=== PATIENT | female | born 1970 | race Caucasian/White ===

== ENCOUNTER 2019-05-05 14:50 | Emergency (ER) | payer SELFPAY ==
[~2019-05-05] VITALS: Ht 167.6 cm; Wt 78.6 kg
[2019-05-05] MEDS ORDERED: cefTRIAXone FOR IV USE 1,000 MG in WATER (STERILE) FOR INJECTION 10 ML IV ONE (15:15)
--- NOTE | 2019-05-05 15:32 | ED Integumentary General ---
General Chief Complaint: Skin/Wound Problems Stated Complaint: LT LEG PAIN/SWELLING Source: patient, caregiver Exam Limitations: no limitations History of Present Illness Date Seen by Provider: May 05, 2019 Time Seen by Provider: 15:06 Initial Comments The patient presents to ER by private conveyance with chief complaint she's having some redness pain and swelling in her right ankle consistent with what she says her father gets his cellulitis sometimes. She's never had cellulitis or DVTs. She's worried about a clot though because she's been fighting metastatic breast cancer since 2006. She is on chemotherapy in her white count and platelets were low. She recently got out of hospital and completed Levaquin for fever and possible pneumonia 2 days ago. She's not having any fevers or chills today. She has not taken anything extra for the pain and does not want anything for it right now. She says she sets up a picture of it to her oncologist at [facility] and he told her that he did not think it was a blood clot but she should come to the ER she was concerned about it. She does use oxygen 3-5 L/m at baseline and is not anymore short of breath than usual. She has no history of asthma COPD and quit smoking over 3 years ago. Allergies and Home Medications Allergies Coded Allergies: Iodine (Verified Allergy, Unknown, 06/07/11) Povidone-Iodine (Verified Allergy, Unknown, 06/07/11) Soap (Verified Allergy, Unknown, 06/07/11) Home Medications Cephalexin 500 Mg Tablet, 500 MG PO QID Prescribed by: LANDON NELSON on 05/05/19 1537 Patient Home Medication List Home Medication List Reviewed: Yes Review of Systems Review of Systems Constitutional: No chills, No diaphoresis; fever (2 days ago); No malaise EENTM: No ear discharge, No ear pain Respiratory: No cough, No phlegm Cardiovascular: No chest pain, No edema Gastrointestinal: No abdominal pain, No nausea Genitourinary: No discharge, No dysuria Past Mqxjysn-Ekkryy-Zhzboe Hx Patient Social History Alcohol Use: Denies Use Recreational Drug Use: No Smoking Status: Former Smoker Type Used: Cigarettes Physical Exam Vital Signs Vital Signs - First Documented 05/05/19 16:27 Temp 96.3 Pulse 102 Resp 20 B/P (MAP) 116/91 (99) Pulse Ox 98 O2 Delivery Nasal Cannula O2 Flow Rate 5.00 Capillary Refill : General Appearance: WD/WN, no apparent distress HEENT: PERRL/EOMI, normal ENT inspection Cardiovascular: normal peripheral pulses, regular rate, rhythm Respiratory: lungs clear, normal breath sounds, no respiratory distress, no accessory muscle use Neurologic/Psychiatric: alert, normal mood/affect, oriented x 3 Skin: rash (red, warm, tense, mild swelling of the right lower ankle and a round irregular shape without induration or area of fluctuance palpable. No pointing. Anterior to the lateral malleolus. Approximately 5 cm diameter.), other (erythema is not circumferential) Progress/Results/Core Measures Results/Orders Lab Results Laboratory Tests Test 05/05/19 15:30 Range/Units White Blood Count 5.6 4.3-11.0 10^3/uL Red Blood Count 2.75 L 4.35-5.85 10^6/uL Hemoglobin 8.5 L 11.5-16.0 G/DL Hematocrit 27 L 35-52 % Mean Corpuscular Volume 98 80-99 FL Mean Corpuscular Hemoglobin 31 25-34 PG Mean Corpuscular Hemoglobin Concent 31 L 32-36 G/DL Red Cell Distribution Width 18.8 H 10.0-14.5 % Platelet Count 54 L 130-400 10^3/uL Mean Platelet Volume 10.8 H 7.4-10.4 FL Neutrophils (%) (Auto) 54 42-75 % Lymphocytes (%) (Auto) 11 L 12-44 % Monocytes (%) (Auto) 19 H 0-12 % Eosinophils (%) (Auto) 1 0-10 % Basophils (%) (Auto) 1 0-10 % Neutrophils # (Auto) 3.0 1.8-7.8 X 10^3 Lymphocytes # (Auto) 0.6 L 1.0-4.0 X 10^3 Monocytes # (Auto) 1.1 H 0.0-1.0 X 10^3 Eosinophils # (Auto) 0.1 0.0-0.3 10^3/uL Basophils # (Auto) 0.1 0.0-0.1 10^3/uL Neutrophils % (Manual) 33 % Lymphocytes % (Manual) 20 % Monocytes % (Manual) 19 % Metamyelocytes % 3 % Myelocytes % 2 % Band Neutrophils 23 % Hypochromasia 2+ Microcytosis 1+ D-Dimer 2.49 H 0.00-0.49 UG/ML Sodium Level 138 135-145 MMOL/L Potassium Level 4.2 3.6-5.0 MMOL/L Chloride Level 98 98-107 MMOL/L Carbon Dioxide Level 30 21-32 MMOL/L Anion Gap 10 5-14 MMOL/L Blood Urea Nitrogen 12 7-18 MG/DL Creatinine 0.47 L 0.60-1.30 MG/DL Estimat Glomerular Filtration Rate > 60 BUN/Creatinine Ratio 26 Glucose Level 95 70-105 MG/DL Calcium Level 8.8 8.5-10.1 MG/DL Corrected Calcium 9.9 8.5-10.1 MG/DL Total Bilirubin 0.5 0.1-1.0 MG/DL Aspartate Amino Transf (AST/SGOT) 26 5-34 U/L Alanine Aminotransferase (ALT/SGPT) 10 0-55 U/L Alkaline Phosphatase 255 H 40-136 U/L Total Protein 5.7 L 6.4-8.2 GM/DL Albumin 2.6 L 3.2-4.5 GM/DL My Orders Orders - LANDON NELSON Cbc With Automated Diff (05/05/19 15:12) Fibrin Degradation Products (05/05/19 15:12) Ed Iv/Invasive Line Start (05/05/19 15:12) Ceftriaxone For Iv Use (Rocephin For I (05/05/19 15:15) Comprehensive Metabolic Panel (05/05/19 15:12) Manual Differential (05/05/19 15:30) Medications Given in ED Current Medications Medications Dose Ordered Sig/Roni Route Start Time Stop Time Status Last Admin Dose Admin Ceftriaxone Sodium 1000 mg/ Sterile Water 10 ml @ 200 mls/hr ONCE ONCE IV 05/05/19 15:15 05/05/19 15:17 DC 05/05/19 15:46 200 MLS/HR Vital Signs/I&O 05/05/19 16:27 Temp 96.3 Pulse 102 Resp 20 B/P (MAP) 116/91 (99) Pulse Ox 98 O2 Delivery Nasal Cannula O2 Flow Rate 5.00 Progress Progress Note #1: Time: 15:29 Progress Note We've discussed the possibility of a blood clot and how it does not appear to be consistent with a blood clot. She has no Homans sign or posterior calf tenderness, evidence of a DVT. No personal history of DVTs. She does still take chemotherapy for active rest cancer which is a independent risk factor. We do not have ultrasound available today so we discussed putting her on a blood thinner and sending her to get an ultrasound outpatient but she would prefer not to do this as her platelets were low last time she had blood test done. Her family history includes a blood clot in her mom's arm after she had breast cancer. She does not use estrogen or cigarettes. She denies marijuana use. She said she had to get 2 units of blood during her hospital stay so we will check a CBC and a CMP. We'll check a d-dimer but it is undoubtedly elevated due to the appearance of the cellulitis. Her recent having fevers but no known infection source while in the hospital could be consistent with cellulitis. Blood cultures are not likely to be useful. If her symptoms are worsening in 2 days then she should return. If she has any new symptoms we'll have her return to the hospital. She also can follow-up with her primary care doctor on Friday 2 days from now. She prefers this over being held in the hospital or going to the ER at [place] to have an ultrasound performed. Will Romeo the skin check some basic labs and give her a dose of Rocephin and put her out on Keflex. Progress Note #2: Time: 17:14 Progress Note Failed to rule out a DVT by d-dimer however the patient's well score puts her as a moderate risk. After our previous discussion and low clinical suspicion for DVT based on examination we have offered the patient an ultrasound at [place] ER and she has declined. She prefers just to try the antibiotics. She does not want to be on blood thinners. Her platelets are low but sufficient. We've given her Rocephin and we'll put her out on Keflex 4 times a day. We will provide her a order for outpatient ultrasound of the lower extremity if she wants to do it tomorrow. Departure Impression Primary Impression: Cellulitis of right lower extremity without foot Disposition: 01 HOME, SELF-CARE Condition: Stable Departure-Patient Inst. Decision time for Depature: 17:00 Referrals: DAR CHRISTOPHER MD (PCP/Family) Primary Care Physician Patient Instructions: Cellulitis (Skin Infection), Adult (DC) Add. Discharge Instructions: Warm compresses frequently for pain relief. Use your pain medicines as necessary. 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 Follow-up with your primary care doctor on Friday. If you're not seeing improvement by day 3 then you should return to your doctor or the ER for reevaluation. If you're having worsening shortness of breath chest pain or other worrisome symptoms then you should return to the nearest ER. If you want to get an ultrasound of your lower extremity tomorrow you can come up and get one done on an outpatient basis on , tomorrow. All discharge instructions reviewed with patient and/or family. Voiced understanding. Scripts Cephalexin (Cephalexin) 500 Mg Tablet 500 MG PO QID for 7 Days, #28 TAB 0 Refills Prov: LANDON NELSON 05/05/19 LANDON NELSON May 05, 2019 15:32
[2019-05-05] MEDS ORDERED: CEPH500T PO (15:37)
[2019-05-05 16:08] LABS: BUN/CREATININE RATIO 26; CARBON DIOXIDE 30 MMOL/L (21-32); CHLORIDE 98 MMOL/L (98-107); CREATININE SERUM 0.47 MG/DL (0.60-1.30); GFR ESTIMATED > 60; GLUCOSE 95 MG/DL (70-105); POTASSIUM 4.2 MMOL/L (3.6-5.0); SODIUM 138 MMOL/L (135-145)
[2019-05-05 16:09] LABS: ALANINE AMINOTRANSFERASE 10 U/L (0-55); ALBUMIN 2.6 GM/DL (3.2-4.5); ALKALINE PHOSPHATASE 255 U/L (40-136); BILIRUBIN,TOTAL 0.5 MG/DL (0.1-1.0); CALCIUM 8.8 MG/DL (8.5-10.1); TOTAL PROTEIN 5.7 GM/DL (6.4-8.2)
[2019-05-05 16:35] LABS: HEMATOCRIT 27 % (35-52); HEMOGLOBIN 8.5 G/DL (11.5-16.0); MEAN CORPUSCULAR HEMOGLOBIN 31 PG (25-34); WHITE BLOOD COUNT 5.6 10^3/uL (4.3-11.0)
[2019-05-05 16:36] LABS: EOSINOPHILS % (AUTO) 1 % (0-10); LYMPHOCYTES % (AUTO) 11 % (12-44); MEAN CORPUSCULAR HGB CONC 31 G/DL (32-36); MEAN CORPUSCULAR VOLUME 98 FL (80-99); MEAN PLATELET VOLUME 10.8 FL (7.4-10.4); MONOCYTES % (AUTO) 19 % (0-12); NEUTROPHILS % (AUTO) 54 % (42-75); PLATELET COUNT 54 10^3/uL (130-400); RED CELL DISTRIBUTION WIDTH 18.8 % (10.0-14.5)
[2019-05-05 16:37] LABS: BASOPHILS # (AUTO) 0.1 10^3/uL (0.0-0.1); BASOPHILS % (AUTO) 1 % (0-10); EOSINOPHILS # (AUTO) 0.1 10^3/uL (0.0-0.3); LYMPHOCYTES # (AUTO) 0.6 X 10^3 (1.0-4.0); MONOCYTES # (AUTO) 1.1 X 10^3 (0.0-1.0)
[2019-05-05 16:40] LABS: BAND NEUTROPHILS 23 %; LYMPHOCYTES % (MANUAL) 20 %; NEUTROPHILS % (MANUAL) 33 %
[2019-05-05 16:41] LABS: HYPOCHROMASIA 2+; METAMYELOCYTES % 3 %; MICROCYTOSIS 1+; MONOCYTES % (MANUAL) 19 %; MYELOCYTES % 2 %
[2019-05-05] MEDS ORDERED: HEParin (CENTRAL IV FLUSH) 500 UNIT/5 ML SYR ONE (17:30)
[2019-05-05 17:44] VITALS: BP 116/76
[2019-05-05] MEDS ORDERED: HEParin (CENTRAL IV FLUSH) 500 UNIT/5 ML SYR IV ONE (17:45)
== END 2019-05-05 17:44 | disposition home or self-care (01) ==
LOC: EDUNIT# 14:50 → ER FS 14:52
DX: L03.115 Cellulitis of right lower limb (principal); C50.919 Malignant neoplasm of unspecified site of unspecified female breast; Z87.891 Personal history of nicotine dependence; Z91.041 Radiographic dye allergy status; Z99.81 Dependence on supplemental oxygen
CPT/HCPCS: 36415; 80053; 85007; 85027; 85379; 96365; 99282

== ENCOUNTER → 2019-05-07 | Outpatient (CLI) | payer OTHER ==
[~2019-05-07] MED LIST: CEPH500T PO
--- NOTE | 2019-05-07 16:27 | Diagnostic Imaging Report ---
PROCEDURE: US right lower extremity venous. TECHNIQUE: Multiple real-time grayscale images were obtained over the right lower extremity in various projections. Additional spectral analysis and color Doppler duplex images were also obtained. INDICATION: Right lower extremity swelling and erythema. FINDINGS: No femoropopliteal deep venous system clot is identified. No identifiable superficial clot. No fluid collection. There are some inguinal lymph nodes in the groin. No suspicious mass. IMPRESSION: Negative for venous thrombus or fluid collection. Dictated by: Dictated on workstation # [id number]
== END ==
LOC: RAD 15:04
PROVIDERS: ATTEND Emergency Medicine
DX: M79.89 Other specified soft tissue disorders (principal); L53.9 Erythematous condition, unspecified

== ENCOUNTER → 2019-11-08 | Outpatient (CLI) | payer OTHER ==
[2019-11-08 13:05] LABS: ALANINE AMINOTRANSFERASE 16 U/L (0-55); ALBUMIN 2.9 GM/DL (3.2-4.5); ALKALINE PHOSPHATASE 373 U/L (40-136); BILIRUBIN,TOTAL 0.6 MG/DL (0.1-1.0); BUN/CREATININE RATIO 31; CALCIUM 9.6 MG/DL (8.5-10.1); CARBON DIOXIDE 26 MMOL/L (21-32); CHLORIDE 100 MMOL/L (98-107); CREATININE SERUM 0.49 MG/DL (0.60-1.30); GFR ESTIMATED > 60; GLUCOSE 88 MG/DL (70-105); SODIUM 138 MMOL/L (135-145); TOTAL PROTEIN 6.6 GM/DL (6.4-8.2)
[2019-11-08 14:15] LABS: BAND NEUTROPHILS 4 %; BASOPHILS % (AUTO) 1 % (0-10); BASOPHILS % (MANUAL) 0 %; EOSINOPHILS % (AUTO) 2 % (0-10); EOSINOPHILS % (MANUAL) 2 %; HEMATOCRIT 29 % (35-52); LYMPHOCYTES # (AUTO) 0.3 X 10^3 (1.0-4.0); LYMPHOCYTES % (AUTO) 15 % (12-44); LYMPHOCYTES % (MANUAL) 14 %; MEAN CORPUSCULAR HEMOGLOBIN 32 PG (25-34); MEAN CORPUSCULAR HGB CONC 31 G/DL (32-36); MEAN CORPUSCULAR VOLUME 104 FL (80-99); MEAN PLATELET VOLUME 9.6 FL (7.4-10.4); MONOCYTES # (AUTO) 0.2 X 10^3 (0.0-1.0); MONOCYTES % (AUTO) 12 % (0-12); MONOCYTES % (MANUAL) 10 %; NEUTROPHILS # (AUTO) 1.4 X 10^3 (1.8-7.8); NEUTROPHILS % (AUTO) 69 % (42-75); NEUTROPHILS % (MANUAL) 70 %; PLATELET COUNT 69 10^3/uL (130-400); RED CELL DISTRIBUTION WIDTH 15.9 % (10.0-14.5)
[2019-11-08 14:16] LABS: ANISOCYTOSIS SLIGHT
== END ==
LOC: IHC 12:12
PROVIDERS: ATTEND Internal Medicine Medical Oncology
DX: C50.911 Malignant neoplasm of unspecified site of right female breast (principal)
CPT/HCPCS: 36415; 80053; 85007; 85027; 86300

== ENCOUNTER 2020-03-14 02:58 | Emergency (ER) | payer OTHER, MEDICARE ==
--- NOTE | 2020-03-14 03:19 | ED Respiratory ---
General Stated Complaint: SHORT OF BREATHE Source: patient, EMS Exam Limitations: no limitations History of Present Illness Date Seen by Provider: Mar 14, 2020 Time Seen by Provider: 02:57 Initial Comments Patient comes from home by EMS with chief complaint of shortness of air. She says she is almost completely better now after a DuoNeb from EMS. She says that she forgot to take her own DuoNeb before calling for an ambulance. She has crackles auscultated on the right side according to EMS. She says she has chronic lymphedema bilateral lower extremities which is normal for her. 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 EMS says that she is about her baseline for mentation. She has oxygen concentrator on 3 L at baseline but she also had about 50 foot of hose attached to it. Prior to the breathing treatment the patient was satting about 92% and afterwards she is 96%. Patient says she's been on [id number] AZO for the past 2 days for urinary tract symptoms. She sent a urine specimen yesterday and expects to get an antibiotic prescribed by her primary care doctor, Dr. Christopher today. Primary cancer is from the breast 2007. Her oncologist is at [facility]. Quit smoking 4 years ago. Echocardiogram by Dr. Enriquez 2010 demonstrates EF of 60%. Early diastolic dysfunction suggested. Allergies and Home Medications Allergies Coded Allergies: Iodine (Verified Allergy, Unknown, 06/07/11) Povidone-Iodine (Verified Allergy, Unknown, 06/07/11) Soap (Verified Allergy, Unknown, 06/07/11) Home Medications Cephalexin 500 Mg Tablet, 500 MG PO QID Prescribed by: LANDON NELSON on 05/05/19 1537 Patient Home Medication List Home Medication List Reviewed: Yes Review of Systems Review of Systems Constitutional: No chills, No fever, No malaise EENTM: No ear discharge, No hearing loss, No ear pain Respiratory: cough, phlegm, short of breath, wheezing Cardiovascular: No chest pain, No Hx of Intervention, No palpitations Gastrointestinal: No abdominal pain, No constipation, No diarrhea, No nausea Genitourinary: No discharge, No dysuria Musculoskeletal: No back pain, No joint pain Hematologic/Lymphatic: Denies Blood Clots, Denies Easy Bruising All Other Systems Reviewed Negative Unless Noted: Yes Past Udzyfun-Zbeexq-Voqcmc Hx Patient Social History Alcohol Use: Denies Use Type Used: Cigarettes Recent Foreign Travel: No Contact w/Someone Who Travel: No Recent Hopitalizations: Yes Seasonal Allergies Seasonal Allergies: No Past Medical History Surgeries: Yes (lumpectomy, mastectomy, lap cholecystectomy, dilation and curettage, tubal ) Adenoidectomy, Hysterectomy Respiratory: Yes Asthma Cardiac: Yes (chest pain not due to acute coronary syndrome) Hypertension Neurological: No TWISTHAND History: Tubal Ligation Genitourinary: No Gastrointestinal: Yes (pancreatitis due to biliary obstruction) Pancreatitis Musculoskeletal: Yes (cervical radiculopathy at C8, pathologic fx of rt acetabulum, radicular leg) Endocrine: Yes Lupus HEENT: No Cancer: Yes (malignant neoplasm of breast) Breast, Esophageal What Type of Treatment Did You: Chemotherapy, Radiation, Surgical Intervention Psychosocial: Yes (tobacco use disorder) Depression Integumentary: No Physical Exam Vital Signs - First Documented 03/14/20 03/14/20 03:17 03:37 Temp 36.2 Pulse 112 Resp 24 B/P (MAP) 128/114 (119) Pulse Ox 95 O2 Delivery Non Rebreather O2 Flow Rate 6.00 FiO2 95 Capillary Refill : Height: 5'6.00" Weight: 173lbs. 6.0oz. [id number]; BMI Method:Stated General Appearance: WD/WN, no apparent distress Eyes: Bilateral Eye Normal Inspection, Bilateral Eye PERRL, Bilateral Eye EOMI HEENT: PERRL/EOMI, TMs normal, pharynx normal, other (mild scleral icterus) Neck: non-tender, full range of motion, supple, normal inspection Respiratory: no accessory muscle use, respiratory distress (mild), decreased breath sounds, rales (right base), wheezing (mild right worse than left) Cardiovascular: normal peripheral pulses, regular rate, rhythm, tachycardia, other (3+ pitting edema bilateral lower extremities) Gastrointestinal: normal bowel sounds, non tender, soft Neurologic/Psychiatric: alert, normal mood/affect, oriented x 3 Skin: warm/dry, jaundice Focused Exam Sepsis Stage: Septic Shock Possible Source: Pulmonary Lactate Level 03/14/20 03:24: Lactic Acid Level 1.39 Time of Focused Exam: 05:48 Respiratory: Chest Non Tender, No Accessory Muscle Use, Respiratory Distress (mild with increased oxygen demand 6 L to maintain oxygen sats 9800%.) Cardiovascular: Regular Rate, Rhythm; No Normal Peripheral Pulses; Tachycardia, Other (3+ pitting edema bilateral lower extremities) Capillary Refill: Greater Than 3 Seconds Peripheral Pulses: 1+ Radial Pulses (R), 1+ Radial Pulses (L) Skin: warm/dry, jaundice Lactic Acid Level Laboratory Tests Test 03/14/20 03:24 Lactic Acid Level 1.39 MMOL/L (0.50-2.00) Within 3hrs of presentation: Admin fluids, Admin ABX, Blood cultures prior to ABX's, Focus exam, Lactate level, Vasopressin therapy Progress/Results/Core Measures Suspected Sepsis SIRS Temperature: Pulse: Respiratory Rate: Laboratory Tests 03/14/20 03:24: White Blood Count 1.5L Blood Pressure / Mean: 03/14/20 03:24: Lactic Acid Level 1.39 Laboratory Tests 03/14/20 03:24: Creatinine 2.00H, INR Comment 1.5H, Platelet Count 33*L, Total Bilirubin 1.2H Results/Orders Lab Results Laboratory Tests Test 03/14/20 03:24 03/14/20 03:25 03/14/20 04:10 Range/Units White Blood Count 1.5 L 4.3-11.0 10^3/uL Red Blood Count 2.37 L 4.35-5.85 10^6/uL Hemoglobin 7.7 L 11.5-16.0 G/DL Hematocrit 24 L 35-52 % Mean Corpuscular Volume 101 H 80-99 FL Mean Corpuscular Hemoglobin 32 25-34 PG Mean Corpuscular Hemoglobin Concent 32 32-36 G/DL Red Cell Distribution Width 15.0 H 10.0-14.5 % Platelet Count 33 *L 130-400 10^3/uL Mean Platelet Volume 10.8 H 7.4-10.4 FL Neutrophils (%) (Auto) 77 H 42-75 % Lymphocytes (%) (Auto) 12 12-44 % Monocytes (%) (Auto) 10 0-12 % Eosinophils (%) (Auto) 1 0-10 % Basophils (%) (Auto) 0 0-10 % Neutrophils # (Auto) 1.1 L 1.8-7.8 X 10^3 Lymphocytes # (Auto) 0.2 L 1.0-4.0 X 10^3 Monocytes # (Auto) 0.1 0.0-1.0 X 10^3 Eosinophils # (Auto) 0.0 0.0-0.3 10^3/uL Basophils # (Auto) 0.0 0.0-0.1 10^3/uL Neutrophils % (Manual) 22 % Lymphocytes % (Manual) 14 % Monocytes % (Manual) 7 % Eosinophils % (Manual) 0 % Basophils % (Manual) 0 % Metamyelocytes % 2 % Myelocytes % 2 % Band Neutrophils 53 % Platelet Estimate DECREASED Macrocytosis 2+ Prothrombin Time 18.6 H 12.2-14.7 SEC INR Comment 1.5 H 0.8-1.4 Activated Partial Thromboplast Time 45 H 24-35 SEC Sodium Level 136 135-145 MMOL/L Potassium Level 3.3 L 3.6-5.0 MMOL/L Chloride Level 96 L 98-107 MMOL/L Carbon Dioxide Level 24 21-32 MMOL/L Anion Gap 16 H 5-14 MMOL/L Blood Urea Nitrogen 33 H 7-18 MG/DL Creatinine 2.00 H 0.60-1.30 MG/DL Estimat Glomerular Filtration Rate 26 BUN/Creatinine Ratio 17 Glucose Level 126 H 70-105 MG/DL Lactic Acid Level 1.39 0.50-2.00 MMOL/L Calcium Level 8.7 8.5-10.1 MG/DL Corrected Calcium 9.4 8.5-10.1 MG/DL Total Bilirubin 1.2 H 0.1-1.0 MG/DL Aspartate Amino Transf (AST/SGOT) 33 5-34 U/L Alanine Aminotransferase (ALT/SGPT) 29 0-55 U/L Alkaline Phosphatase 165 H 40-136 U/L C-Reactive Protein > 42.20 H <0.50 MG/DL Pro-B-Type Natriuretic Peptide 86772.0 H <75.0 PG/ML Total Protein 6.3 L 6.4-8.2 GM/DL Albumin 3.1 L 3.2-4.5 GM/DL Urine Color ORANGE Urine Clarity CLOUDY H Urine pH 6.5 5-9 Urine Specific [place] 1.020 1.016-1.022 Urine Protein 3+ H NEGATIVE Urine Glucose (UA) TRACE H NEGATIVE Urine Ketones 1+ H NEGATIVE Urine Nitrite POSITIVE H NEGATIVE Urine Bilirubin 2+ H NEGATIVE Urine Urobilinogen >=8.0 < = 1.0 MG/DL Urine Leukocyte Esterase 1+ H NEGATIVE Urine RBC (Auto) TRACE H NEGATIVE Urine RBC 10-25 H /HPF Urine WBC >100 H /HPF Urine Squamous Epithelial Cells 2-5 /HPF Urine Crystals NONE /LPF Urine Bacteria LARGE H /HPF Urine Casts NONE /LPF Urine Mucus NEGATIVE /LPF Urine Culture Indicated CULTURE PENDING Blood Gas Puncture Site RT RAD Blood Gas Patient Temperature NA Arterial Blood pH 7.36 L 7.37-7.43 Arterial Blood Partial Pressure CO2 45 35-45 MMHG Arterial Blood Partial Pressure O2 59 L 79-93 MMHG Arterial Blood HCO3 25 23-27 MMOL/L Arterial Blood Total CO2 26.8 21.0-31.0 MMOL/L Arterial Blood Oxygen Saturation 89 L 94-100 % Arterial Blood Base Excess -0.3 -2.5-2.5 MMOL/L Dominic Test NA Blood Gas Ventilator Setting NO Blood Gas Inspired Oxygen 6L O2 My Orders Orders - LESLIE,LANDON J Cbc With Automated Diff (03/14/20 03:11) Comprehensive Metabolic Panel (03/14/20 03:11) Blood Culture (03/14/20 03:11) Sputum Culture (03/14/20 03:11) Urinalysis (03/14/20 03:11) Urine Culture (03/14/20 03:11) Protime With Inr (03/14/20 03:11) Partial Thromboplastin Time (03/14/20 03:11) Chest 1 View Ap/Pa Only (03/14/20 03:11) Ed Iv/Invasive Line Start (03/14/20 03:11) Ed Iv/Invasive Line Start (03/14/20 03:11) Vital Signs Adult Sepsis Patie Q15M (03/14/20 03:11) O2 (03/14/20 03:11) Remove Rings In Anticipation O (03/14/20 03:11) Lactic Acid Analyzer (03/14/20 03:11) Crp Fs (03/14/20 03:11) Probnp Fs (03/14/20 03:11) Arterial Blood Gas (03/14/20 03:11) Albuterol/Ipra Inhalation Soln (Duoneb I (03/14/20 03:45) Svn Small Volume Nebulizer (03/14/20 03:43) Manual Differential (03/14/20 03:24) Ed Iv/Invasive Line Start (03/14/20 04:58) Lactated Ringers (Lr 1000 Ml Iv Solution (03/14/20 04:58) Cefepime Injection (Maxipime Injection) (03/14/20 05:00) Vancomycin Injection (Vancomycin Injecti (03/14/20 05:00) Ed Iv/Invasive Line Start (03/14/20 05:08) Lactated Ringers (Lr 1000 Ml Iv Solution (03/14/20 05:08) Norepinephrine 4 Mg/250 Ml (Norepinephri (03/14/20 05:30) Medications Given in ED Current Medications Medications Dose Ordered Sig/Roni Route Start Time Stop Time Status Last Admin Dose Admin Albuterol/ Ipratropium 3 ml ONCE ONCE INH 03/14/20 03:45 03/14/20 03:46 DC 03/14/20 03:55 3 ML Cefepime HCl 1000 mg/Sterile Water 10 ml @ 200 mls/hr ONCE ONCE IV 03/14/20 05:00 03/14/20 05:02 DC 03/14/20 05:09 200 MLS/HR Lactated Ringer's 1,000 ml @ 0 mls/hr Q0M ONCE IV 03/14/20 04:58 03/14/20 04:59 DC 03/14/20 05:07 999 MLS/HR Lactated Ringer's 1,000 ml @ 0 mls/hr Q0M ONCE IV 03/14/20 05:08 03/14/20 05:09 DC 03/14/20 05:16 0 MLS/HR Vital Signs/I&O 03/14/20 03/14/20 03/14/20 03/14/20 03:17 03:37 05:24 05:25 Temp 36.2 36.7 Pulse 112 113 106 Resp 24 16 B/P (MAP) 128/114 (119) 83/50 95/64 Pulse Ox 95 95 98 O2 Delivery Non Rebreather Non Rebreather Non Rebreather O2 Flow Rate 6.00 6.00 FiO2 95 Capillary Refill : Progress Note #1: Time: 03:21 Progress Note DuoNeb seemed to significantly improve her subjective dyspnea. She does have some adventitious lung sounds and a concerning hue to her skin. Plan to get labs to include bilirubin, BNP. She is having some difficulty finishing her sentences although EMS so this is her baseline. She gets lost at the end of her symptoms. So she was talking about some times. She is able to communicate her wishes and answers questions otherwise appropriately. We'll check urinalysis. We'll start a septic workup as she has some tachycardia and tachypnea however we'll hold off on antibiotics or fluids until he get some labs back as she could be in fluid overload. ABG. Patient says she is much better after the DuoNeb and feels comfortable returning home. She denies having metastases to her liver, abdominal pain or jaundice. Progress Note #2: Time: 04:13 Progress Note Initial ABG appeared to be venous. Patient desats to 87 with exertion getting onto the commode. Patient's oxygen sats go back up to the mid 90s however shortly after resting. Patient's confirms that this is her at baseline. He says she takes her gabapentin and methadone same time which makes her a little loopy. Progress Note #3: Time: 04:23 Progress Note She has pancytopenia and a urinary tract infection. Her BNP is 14,000. Her ABG reveals what is probably chronic hypoxia may be a little worse than usual. I think she would benefit from a stay in the hospital on broad-spectrum antibiotics to cover for UTI, possible postobstructive pneumonia and careful fluid management. Discussed the case with the patient and wall she is not thrilled about staying in the hospital she says she would prefer to go to [facility] where her oncologist is. Given the burden of her disease and think this is appropriate. She is stable at this time for transport. Cefepime, vancomycin and a liter of lactated Ringer's. Her going to be very cautious about fluids given her respiratory distress may be complicated by heart failure. Progress Note #4: Time: 05:09 Progress Note Patient's blood pressure has gone soft 90/60. Map of 66. Start pushing fluids tonight of 2 L which would be about 30 mL/kg based on a weight of 73 kg. If this does not correct her hypotension then she would be in septic shock and we would put her on pressors through her pre-existing PowerPort. Progress Note #5: Time: 05:47 Progress Note Low-dose face pressure has brought her map up from 60-80. She is currently 98/76 still mentating normally with an oxygen sat of 98% heart rate 110. Fluids and antibiotics are still going. EMS has been summonsed to take her to [facility]. Diagnostic Imaging Diagonstic Imaging: Xray Plain Films/CT/US/NM/MRI: chest (1v) Comments White out opacification over the right upper lobe without any recent imaging of the chest to compare to. Destructive lesion of the right proximal humerus likely secondary to metastatic disease. Reviewed: Reviewed by Me Departure Impression Primary Impression: Septic shock Additional Impressions: UTI (urinary tract infection) Qualified Codes: N30.01 - Acute cystitis with hematuria Postobstructive pneumonia Acquired hyperbilirubinemia Acute respiratory failure with hypoxia Pancytopenia Disposition: ADMITTED INPATIENT (ERASED) Condition: Stable Admissions Decision to Admit Reason: Admit from ER (General) Decision to Admit/Date: Mar 14, 2020 Time/Decision to Admit Time: 04:23 Transfer Transfer Reason: Patient preference Time Spoke to Accepting Phy: 04:55 Transfer Progress Notes [place], Triage: Facesheet sent via fax Discussed the case with Dr. Calvin Nino and he agrees to accept the patient. Transfer Facility: [facility] Method of Transfer: EMS Departure-Patient Inst. Referrals: DAR CHRISTOPHER MD (PCP/Family) Primary Care Physician LANDON NELSON Mar 14, 2020 03:19
[2020-03-14 03:41] LABS: HEMATOCRIT 24 % (35-52); HEMOGLOBIN 7.7 G/DL (11.5-16.0); MEAN CORPUSCULAR HEMOGLOBIN 32 PG (25-34); MEAN CORPUSCULAR HGB CONC 32 G/DL (32-36); MEAN CORPUSCULAR VOLUME 101 FL (80-99); WHITE BLOOD COUNT 1.5 10^3/uL (4.3-11.0)
[2020-03-14 03:42] LABS: BASOPHILS % (AUTO) 0 % (0-10); EOSINOPHILS % (AUTO) 1 % (0-10); LYMPHOCYTES % (AUTO) 12 % (12-44); MEAN PLATELET VOLUME 10.8 FL (7.4-10.4); MONOCYTES % (AUTO) 10 % (0-12); NEUTROPHILS % (AUTO) 77 % (42-75)
[2020-03-14 03:43] LABS: LYMPHOCYTES # (AUTO) 0.2 X 10^3 (1.0-4.0); MONOCYTES # (AUTO) 0.1 X 10^3 (0.0-1.0); NEUTROPHILS # (AUTO) 1.1 X 10^3 (1.8-7.8)
[2020-03-14] MEDS ORDERED: RT-ALBUTEROL/IPRATROPIUM 3 ML (DUONEB) VIAL INH ONE (03:45)
[2020-03-14 03:46] LABS: PLATELET COUNT 33 10^3/uL (130-400)
[2020-03-14 03:53] LABS: INR 1.5 (0.8-1.4); PROTHROMBIN TIME PATIENT 18.6 SEC (12.2-14.7)
[2020-03-14 04:15] LABS: ALKALINE PHOSPHATASE 165 U/L (40-136); BILIRUBIN,TOTAL 1.2 MG/DL (0.1-1.0); BUN/CREATININE RATIO 17; CALCIUM 8.7 MG/DL (8.5-10.1); CARBON DIOXIDE 24 MMOL/L (21-32); CHLORIDE 96 MMOL/L (98-107); GFR ESTIMATED 26; GLUCOSE 126 MG/DL (70-105); POTASSIUM 3.3 MMOL/L (3.6-5.0); SODIUM 136 MMOL/L (135-145)
[2020-03-14 04:16] LABS: ALANINE AMINOTRANSFERASE 29 U/L (0-55); ALBUMIN 3.1 GM/DL (3.2-4.5); TOTAL PROTEIN 6.3 GM/DL (6.4-8.2)
[2020-03-14 04:17] LABS: ABG BASE EXCESS -0.3 MMOL/L (-2.5-2.5); ABG OXYGEN SATURATION 89 % (94-100); ABG PCO2 45 MMHG (35-45); ABG PH 7.36 (7.37-7.43); ABG PO2 59 MMHG (79-93); ABG TCO2 26.8 MMOL/L (21.0-31.0)
[2020-03-14 04:18] LABS: INSPIRED O2 6L O2; VENTILATOR NO
[2020-03-14 04:19] LABS: CLARITY,URINE CLOUDY; COLOR,URINE ORANGE; GLUCOSE, URINE (UA) TRACE (NEGATIVE); KETONES,URINE 1+ (NEGATIVE); NITRITE,URINE POSITIVE (NEGATIVE); PH,URINE 6.5 (5-9); PROTEIN,URINE 3+ (NEGATIVE)
[2020-03-14 04:20] LABS: BACTERIA,URINE LARGE /HPF; BILIRUBIN,URINE 2+ (NEGATIVE); LEUKOCYTE ESTERASE ,URINE 1+ (NEGATIVE); WBC,URINE >100 /HPF
[2020-03-14 04:40] LABS: BAND NEUTROPHILS 53 %; BASOPHILS % (MANUAL) 0 %; EOSINOPHILS % (MANUAL) 0 %; LYMPHOCYTES % (MANUAL) 14 %; METAMYELOCYTES % 2 %; MONOCYTES % (MANUAL) 7 %; MYELOCYTES % 2 %; NEUTROPHILS % (MANUAL) 22 %; PLATELET ESTIMATE DECREASED
--- NOTE | 2020-03-14 04:48 | NUR ---
PT. HAS DIARREHA AND WAS INCONTINENT.
[2020-03-14] MEDS ORDERED: LACTATED RINGERS 1,000 ML IV ONE ×2 (04:58→05:08)
[2020-03-14] MEDS ORDERED: CEFEPIME INJECTION 1,000 MG in WATER (STERILE) FOR INJECTION 10 ML IV ONE (05:00)
[2020-03-14] MEDS ORDERED: VANCOMYCIN INJECTION 750 MG in NS (IVPB) 250 ML IV SCH (05:00)
[2020-03-14 05:25] VITALS: BP 95/64
[2020-03-14] MEDS ORDERED: NOREPINEPHRINE 4 MG/250 ML 250 ML IV SCH (05:30)
--- NOTE | 2020-03-14 07:09 | Diagnostic Imaging Report ---
EXAMINATION: Chest 1 view HISTORY: Shortness of breath. History of breast cancer. COMPARISON: CT chest on 07/09/2012. FINDINGS: A right port is visualized the tip overlying the cavoatrial juncture. Consolidative opacities are seen throughout the right mid and upper lung. Additional patchy opacities are seen in the bilateral perihilar regions and lung bases. The cardiac silhouette is somewhat obscured. No large pleural effusion or pneumothorax. There is a heterogeneous appearance of the osseous structures, suggestive of diffuse osseous metastatic disease. Surgical changes are seen in the bilateral axilla. IMPRESSION: 1. Consolidative opacities throughout the right mid and upper lung. Additional patchy perihilar and basilar opacities are present. These findings may represent infection. However, given the history of breast cancer and findings suspicious for osseous metastatic disease CT of the chest should be performed to further evaluate. Dictated by: Dictated on workstation # [id number]
--- NOTE | 2020-03-14 09:18 | NUR ---
This bid writer and [facility] left this ER with pt at 0606 to go to [facility] on the [address]. Pt had Levophed running at 0.02mcg/kg as well as Vancomycin, and two liter bags of normal saline, all going into the pts port in her right chest. Pt's initial vitals were stable with the pt a little tachycardic at 114. The Vancomycin finished at 0615. We arrived at [facility] with pt at 0727. Pt's vitals remained stable throughout the transfer with no changes to the Levophed drip.
--- OUTSIDE RECORDS SUMMARY | 2020-03-14 15:48 | XMS REPORT | Continuity of Care Document ---
Author Organization Unknown Address Unknown Phone Unavailable Allergies Active Description Code Type Severity Reaction Onset Reported/Identified Relationship to Patient Clinical Status Yes iodine [id number] Drug Allergy Unknown N/A 06/07/2011 Yes povidone-iodine [id number] D rug Allergy Unknown N/A 06/07/2011 Yes Soap [id number] Drug Allergy Unknown N/A 06/07/2011 Yes ADHESIVE 21387 Drug Class N/A Blisters 02/24/2018 Yes IODINE AND IODIDE CONTAINING PRODUCTS 06462 Drug Class N/A Blisters 02/25/20 18 Yes HYDROCODONE 31804 DRUG INGREDI N/A Headache 03/28/2019 Medications There is no data. 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 10/03/2018 Z17.0 Estr ogen receptor positive status (ER+) 10/03/2018 VARSHA GU C50.812 Malignant neoplasm of overlapping sites of left female breast 10/03/2018 VARSHA GU Z17.0 Estrogen receptor positive status (ER+) 10/03/2018 VARSHA GU C50.812 Malignant neoplasm of overlapping sites of left female breast 10/03/2018 VARSHA GU Z17.0 Estrogen receptor positive status (ER+) 10/03/2018 VARSHA GU C50.812 Malignant neoplasm of overlapping sites of left female breast 10/03/2018 VARSHA GU Z17.0 Estrogen receptor positive status (ER+) 10/03/2018 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 10/03/2018 Z17.0 Estr ogen receptor positive status (ER+) 10/03/2018 PLUARDVARSHA C50.812 Malignant neoplasm of overlapping sites of left female breast 10/03/2018 PLUARD, VARSHA Z17.0 Estrogen receptor positive status (ER+) 10/03/2018 PLUARD, VARSHA C50.812 Malignant neoplasm of overlapping sites of left female breast 10/03/2018 PLUARD, VARSHA Z17.0 Estrogen receptor positive status (ER+) 10/03/2018 PLUARD, VARSHA C50.812 Malignant neoplasm of overlapping sites of left female breast 10/03/2018 PLUARD, VARSHA Z17.0 Estrogen receptor positive status (ER+) 10/03/2018 PLUARD, VARSHA C50.812 Malignant neoplasm of overlapping sites of left female breast 10/03/2018 PLUARD, VARSHA Z17.0 Estrogen receptor positive status (ER+) 10/03/2018 PLUARD, VARSHA C50.812 Malignant neoplasm of overlapping sites of left female breast 10/03/2018 PLUARD, VARSHA Z17.0 Estrogen receptor positive status (ER+) 10/03/2018 PLUARD, VARSHA C50.812 Malignant neoplasm of overlapping sites of left female breast 10/03/2018 PLUARD, VARSHA Z17.0 Estrogen receptor positive status (ER+) 10/03/2018 PLUARD, VARSHA C50.812 Malignant neoplasm of overlapping sites of left female breast 10/03/2018 PLUARD, VARSHA Z17.0 Estrogen receptor positive status (ER+) 10/03/2018 PLUARD, VARSHA C50.812 Malignant neoplasm of overlapping sites of left female breast 10/03/2018 PLUARD, VARSHA Z17.0 Estrogen receptor positive status (ER+) 10/03/2018 PLUARD, VARSHA C50.812 Malignant neoplasm of overlapping sites of left female breast 10/03/2018 PLUARD, VARSHA Z17.0 Estrogen receptor positive status (ER+) 10/03/2018 PLUARD, VARSHA C50.812 Malignant neoplasm of overlapping sites of left female breast 10/03/2018 PLUARD, VARSHA Z17.0 Estrogen receptor positive status (ER+) 10/03/2018 PLUARD, VARSHA C50.812 Malignant neoplasm of overlapping sites of left female breast 10/03/2018 PLUARD, VARSHA Z17.0 Estrogen receptor positive status (ER+) 10/03/2018 PLUARD, VARSHA C50.812 Malignant neoplasm of overlapping sites of left female breast 10/03/2018 PLUARD, VARSHA Z17.0 Estrogen receptor positive status (ER+) 10/03/2018 PLUARD, VARSHA C50.812 Malignant neoplasm of overlapping sites of left female breast 10/03/2018 PLUARD, VARSHA Z17.0 Estrogen receptor positive status (ER+) 10/03/2018 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 10/03/2018 Z17.0 Estr ogen receptor positive status (ER+) 10/03/2018 PLUARD, VARSHA C50.812 Malignant neoplasm of overlapping sites of left female breast 10/03/2018 PLUARD, VARSHA Z17.0 Estrogen receptor positive status (ER+) 10/03/2018 PLUARD, VARSHA C50.812 Malignant neoplasm of overlapping sites of left female breast 10/03/2018 PLUARD, VARSHA Z17.0 Estrogen receptor positive status (ER+) 10/03/2018 PLUARD, VARSHA C50.812 Malignant neoplasm of overlapping sites of left female breast 10/03/2018 PLUARD, VARSHA Z17.0 Estrogen receptor positive status (ER+) 10/03/2018 PLUARD, VARSHA C50.812 Malignant neoplasm of overlapping sites of left female breast 10/03/2018 PLUARD, VARSHA Z17.0 Estrogen receptor positive status (ER+) 10/03/2018 PLUARD, VARSHA C50.812 Malignant neoplasm of overlapping sites of left female breast 10/03/2018 PLUARD, VARSHA Z17.0 Estrogen receptor positive status (ER+) 10/03/2018 PLUARD, VARSHA C50.812 Malignant neoplasm of overlapping sites of left female breast 10/03/2018 PLUARD, VARSHA Z17.0 Estrogen receptor positive status (ER+) 10/03/2018 PLUARD, VARSHA C50.812 Malignant neoplasm of overlapping sites of left female breast 10/03/2018 PLUARD, VARSHA Z17.0 Estrogen receptor positive status (ER+) 10/03/2018 PLUARD, VARSHA C50.812 Malignant neoplasm of overlapping sites of left female breast 10/03/2018 PLUARD, VARSHA Z17.0 Estrogen receptor positive status (ER+) 10/03/2018 PLUARD, VARSHA C50.812 Malignant neoplasm of overlapping sites of left female breast 10/03/2018 PLUARD, VARSHA Z17.0 Estrogen receptor positive status (ER+) 10/03/2018 PLUARD, VARSHA C50.812 Malignant neoplasm of overlapping sites of left female breast 10/03/2018 PLUARD, VARSHA Z17.0 Estrogen receptor positive status (ER+) 10/03/2018 PLUARD, VARSHA C50.812 Malignant neoplasm of overlapping sites of left female breast 10/03/2018 PLUARD, VARSHA Z17.0 Estrogen receptor positive status (ER+) 11/05/2018 VARSHA GU D64.9 Anemia, unspecified 11/05/2018 PLUARD, VARSHA D64.9 Anemia, unspecified 11/28/2018 R11.2 Naus ea with vomiting, unspecified 11/28/2018 VARSHA GU E86.0 Dehydration 12/06/2018 ALBA YUAN J18.9 Pneumonia, unspecified organism 12/16/2018 C50.919 Ma lignant neoplasm of unspecified site of unspecified female breast 12/16/2018 C50.919 Ma lignant neoplasm of unspecified site of unspecified female breast 12/16/2018 C50.919 Ma lignant neoplasm of unspecified site of unspecified female breast 12/16/2018 C50.919 Ma lignant neoplasm of unspecified site of unspecified female breast 12/16/2018 JACQUELINEUARDVARSHA C50.919 Malignant neoplasm of unspecified site of unspecified female breast 12/16/2018 PLUARDNEWVARSHA C50.919 Malignant neoplasm of unspecified site of unspecified female breast 12/16/2018 PLUARD, VARSHA C50.919 Malignant neoplasm of unspecified site of unspecified female breast 12/16/2018 PLUARDVARSHA C50.919 Malignant neoplasm of unspecified site of unspecified female breast 12/16/2018 PLUARD, VARSHA C50.919 Malignant neoplasm of unspecified site of unspecified female breast 12/16/2018 PLUARD, VARSHA C50.919 Malignant neoplasm of unspecified site of unspecified female breast 12/16/2018 PLUARD, VARSHA C50.919 Malignant neoplasm of unspecified site of unspecified female breast 12/16/2018 PLUARD, VARSHA C50.919 Malignant neoplasm of unspecified site of unspecified female breast 12/16/2018 PLUARD, VARSHA C50.919 Malignant neoplasm of unspecified site of unspecified female breast 12/16/2018 PLUARD, VARSHA C50.919 Malignant neoplasm of unspecified site of unspecified female breast 12/16/2018 PLUARD, VARSHA C50.919 Malignant neoplasm of unspecified site of unspecified female breast 12/16/2018 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 12/16/2018 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 12/16/2018 JACQUELINEUAVARSHA CRAVEN C79.51 Secondary malignant neoplasm of bone 12/16/2018 PLUARDVARSHA C79.51 Secondary malignant neoplasm of bone 12/16/2018 PLUARDVARSHA C79.51 Secondary malignant neoplasm of bone 12/16/2018 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 12/16/2018 PLUAVARSHA CRAVEN C79.51 Secondary malignant neoplasm of bone 12/16/2018 PLUARDVARSHA C79.51 Secondary malignant neoplasm of bone 12/16/2018 PLUARDVARSHA C79.51 Secondary malignant neoplasm of bone 12/16/2018 PLUARDVARSHA C79.51 Secondary malignant neoplasm of bone 12/16/2018 PLUARDVARSHA C79.51 Secondary malignant neoplasm of bone 12/16/2018 PLUARDVARSHA C79.51 Secondary malignant neoplasm of bone 12/16/2018 PLUARD, VARSHA C79.51 Secondary malignant neoplasm of bone 12/16/2018 PLUARD, VARSHA C79.51 Secondary malignant neoplasm of bone 12/16/2018 PLUARDVARSHA C79.51 Secondary malignant neoplasm of bone 12/16/2018 VARSHA GU C79.51 Secondary malignant neoplasm of bone 12/16/2018 VARSHA GU C79.51 Secondary malignant neoplasm of bone 12/16/2018 VARSHA GU C79.51 Secondary malignant neoplasm of bone 12/16/2018 PLUAVARSHA CRAVEN C79.51 Secondary malignant neoplasm of bone 12/16/2018 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 12/16/2018 VARSHA GU C79.51 Secondary malignant neoplasm of bone 12/16/2018 JACQUELINEUAVARSHA CRAVEN C79.51 Secondary malignant neoplasm of bone 12/16/2018 JACQUELINEUAVARSHA CRAVEN C79.51 Secondary malignant neoplasm of bone 12/16/2018 JACQUELINEUAVARSHA CRAVEN C79.51 Secondary malignant neoplasm of bone 12/16/2018 VARSHA GU C79.51 Secondary malignant neoplasm of bone 12/16/2018 JACQUELINEUAVARSHA CRAVEN C79.51 Secondary malignant neoplasm of bone 12/16/2018 JACQUELINEUAVARSHA CRAVEN C79.51 Secondary malignant neoplasm of bone 12/16/2018 JACQUELINEUAVARSHA CRAVEN C79.51 Secondary malignant neoplasm of bone 12/16/2018 JACQUELINEUAVARSHA CRAVEN C79.51 Secondary malignant neoplasm of bone 12/16/2018 JACQUELINEUAVARSHA CRAVEN C79.51 Secondary malignant neoplasm of bone 12/16/2018 VARSHA GU C79.51 Secondary malignant neoplasm of bone 12/16/2018 VARSHA GU J96.01 Acute respiratory failure with hypoxia 01/28/2019 R05 Cough 01/28/2019 R06.02 Anjana rtness of breath 02/18/2019 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 02/18/2019 R11.0 Nausea 02/18/2019 R51 Headache 02/18/2019 Z17.0 Estr ogen receptor positive status (ER+) 03/01/2019 J96.11 Chr onic respiratory failure with hypoxia 03/01/2019 VARSHA GU J96.11 Chronic respiratory failure with hypoxia 03/01/2019 VARSHA GU J96.11 Chronic respiratory failure with hypoxia 03/01/2019 R06.09 Oth er forms of dyspnea 03/04/2019 VARSHA GU 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 03/04/2019 VARSHA GU T45.1X5 A Adverse effect of antineoplastic and immunosuppressive drugs, initial encounter 03/04/2019 VARSHA GU 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 03/04/2019 VARSHA GU T45.1X5 A Adverse effect of antineoplastic and immunosuppressive drugs, initial encounter 03/04/2019 VARSHA GU 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 03/04/2019 VARSHA GU T45.1X5 A Adverse effect of antineoplastic and immunosuppressive drugs, initial encounter 03/10/2019 VARSHA GU 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 03/10/2019 C78.00 Sec ondary malignant neoplasm of unspecified lung 03/10/2019 VARSHA GU 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 03/10/2019 BRITTANIE, VARSHA 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 03/10/2019 VARSHA GU 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 03/10/2019 HANSARD, VARSHA 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 03/24/2019 R06.02 Anjana rtness of breath 03/28/2019 PEACE HINSON [id number] Shortness of Breath 03/28/2019 PEACE HINSON [id number] Shortness of Breath 03/28/2019 PEACE HINSON J18.9 Pneumonia, unspecified organism 03/28/2019 GOUELI, BASEM R06.03 Acute respiratory distress 03/28/2019 GOUELI, BASEM J18.9 Pneumonia, unspecified organism 03/28/2019 GOUELI, BASEM R06.03 Acute respiratory distress 03/28/2019 GOUELI, BASEM J18.9 Pneumonia, unspecified organism 03/28/2019 GOUELI, BASEM R06.03 Acute respiratory distress 03/28/2019 GOUELI, BASEM J18.9 Pneumonia, unspecified organism 03/28/2019 GOUELI, BASEM R06.03 Acute respiratory distress 03/28/2019 GOUELI, BASEM J18.9 Pneumonia, unspecified organism 03/28/2019 GOUELI, BASEM R06.03 Acute respiratory distress 03/28/2019 GOUELI, BASEM J18.9 Pneumonia, unspecified organism 03/28/2019 GOUELI, BASEM R06.03 Acute respiratory distress 03/29/2019 GOUELI, BASEM J18.9 Pneumonia, unspecified organism 03/29/2019 GOUELI, BASEM R06.03 Acute respiratory distress 03/29/2019 GOUELI, BASEM J18.9 Pneumonia, unspecified organism 03/29/2019 GOUELI, BASEM R06.03 Acute respiratory distress 03/29/2019 GOUELI, BASEM J18.9 Pneumonia, unspecified organism 03/29/2019 GOUELI, BASEM R06.03 Acute respiratory distress 03/29/2019 GOUELI, BASEM J18.9 Pneumonia, unspecified organism 03/29/2019 GOUELI, BASEM R06.03 Acute respiratory distress 03/29/2019 GOUELI, BASEM J18.9 Pneumonia, unspecified organism 03/29/2019 GOUELI, BASEM R06.03 Acute respiratory distress 03/29/2019 GOUELI, BASEM C50.919 Malignant neoplasm of unspecified site of unspecified female breast 03/29/2019 VARSHA GU R05 Cough 03/29/2019 GOUELI, BASEM J18.9 Pneumonia, unspecified organism 03/29/2019 GOUELI, BASEM R06.03 Acute respiratory distress 03/29/2019 GOUELI, BASEM J18.9 Pneumonia, unspecified organism 03/29/2019 GOUELI, BASEM R06.03 Acute respiratory distress 03/29/2019 GOUELI, BASEM J18.9 Pneumonia, unspecified organism 03/29/2019 GOUELI, BASEM R06.03 Acute respiratory distress 03/29/2019 GOUELI, BASEM J18.9 Pneumonia, unspecified organism 03/29/2019 GOUELI, BASEM R06.03 Acute respiratory distress 03/30/2019 GOUELI, BASEM J18.9 Pneumonia, unspecified organism 03/30/2019 GOUELI, BASEM R06.03 Acute respiratory distress 03/30/2019 GOUELI, BASEM J18.9 Pneumonia, unspecified organism 03/30/2019 GOUELI, BASEM R06.03 Acute respiratory distress 03/30/2019 GOUELI, BASEM J18.9 Pneumonia, unspecified organism 03/30/2019 GOUELI, BASEM R06.03 Acute respiratory distress 03/30/2019 GOUELI, BASEM J18.9 Pneumonia, unspecified organism 03/30/2019 GOUELI, BASEM R06.03 Acute respiratory distress 03/30/2019 GOUELI, BASEM C50.919 Malignant neoplasm of unspecified site of unspecified female breast 03/30/2019 GOUELI, BASEM J18.9 Pneumonia, unspecified organism 03/30/2019 GOUELI, BASEM R06.03 Acute respiratory distress 03/31/2019 GOUELI, BASEM C50.919 Malignant neoplasm of unspecified site of unspecified female breast 03/31/2019 GOUELI, BASEM J18.9 Pneumonia, unspecified organism 03/31/2019 GOUELI, BASEM R06.03 Acute respiratory distress 03/31/2019 GOUELI, BASEM C50.919 Malignant neoplasm of unspecified site of unspecified female breast 03/31/2019 GOUELI, BASEM J18.9 Pneumonia, unspecified organism 03/31/2019 GOUELI, BASEM R06.03 Acute respiratory distress 03/31/2019 GOUELI, BASEM C50.919 Malignant neoplasm of unspecified site of unspecified female breast 03/31/2019 GOUELI, BASEM J18.9 Pneumonia, unspecified organism 03/31/2019 GOUELI, BASEM R06.03 Acute respiratory distress 03/31/2019 VARSHA GU C50.919 Malignant neoplasm of unspecified site of unspecified female breast 03/31/2019 VARSHA GU C50.919 Malignant neoplasm of unspecified site of unspecified female breast 03/31/2019 VARSHA GU C79.51 Secondary malignant neoplasm of bone 03/31/2019 VARSHA GU C50.919 Malignant neoplasm of unspecified site of unspecified female breast 03/31/2019 ALBA YUAN C50.919 Malignant neoplasm of unspecified site of unspecified female breast 03/31/2019 VARSHA GU 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 03/31/2019 VARSHA GU T45.1X5 A Adverse effect of antineoplastic and immunosuppressive drugs, initial encounter 03/31/2019 PEACE HINSON C50.919 Malignant neoplasm of unspecified site of unspecified female breast 03/31/2019 PEACE HINSON J18.9 Pneumonia, unspecified organism 03/31/2019 PEACE HINSON R06.03 Acute respiratory distress 03/31/2019 PEACE HINSON C50.919 Malignant neoplasm of unspecified site of unspecified female breast 03/31/2019 PEACE HINSON J18.9 Pneumonia, unspecified organism 03/31/2019 PEACE HINSON R06.03 Acute respiratory distress 03/31/2019 PEACE HINSON C50.919 Malignant neoplasm of unspecified site of unspecified female breast 03/31/2019 PEACE HINSON J18.9 Pneumonia, unspecified organism 03/31/2019 PEACE HINSON R06.03 Acute respiratory distress 03/31/2019 PEACE HINSON C50.919 Malignant neoplasm of unspecified site of unspecified female breast 03/31/2019 PEACE HINSON J18.9 Pneumonia, unspecified organism 03/31/2019 PEACE HINSON R06.03 Acute respiratory distress 03/31/2019 PEACE HINSON C50.919 Malignant neoplasm of unspecified site of unspecified female breast 03/31/2019 PEACE HINSON J18.9 Pneumonia, unspecified organism 03/31/2019 GOUELI, BASEM R06.03 Acute respiratory distress 04/01/2019 GOUELI, BASEM C50.919 Malignant neoplasm of unspecified site of unspecified female breast 04/01/2019 GOUELI, BASEM J18.9 Pneumonia, unspecified organism 04/01/2019 GOUELI, BASEM R06.03 Acute respiratory distress 04/01/2019 GOUELI, BASEM C50.919 Malignant neoplasm of unspecified site of unspecified female breast 04/01/2019 GOUELI, BASEM J18.9 Pneumonia, unspecified organism 04/01/2019 GOUELI, BASEM R06.03 Acute respiratory distress 04/01/2019 GOUELI, BASEM C50.919 Malignant neoplasm of unspecified site of unspecified female breast 04/01/2019 GOUELI, BASEM J18.9 Pneumonia, unspecified organism 04/01/2019 GOUELI, BASEM R06.03 Acute respiratory distress 04/01/2019 GOUELI, BASEM C50.919 Malignant neoplasm of unspecified site of unspecified female breast 04/01/2019 GOUELI, BASEM J18.9 Pneumonia, unspecified organism 04/01/2019 GOUELI, BASEM R06.03 Acute respiratory distress 04/01/2019 GOUELI, BASEM C50.919 Malignant neoplasm of unspecified site of unspecified female breast 04/01/2019 GOUELI, BASEM J18.9 Pneumonia, unspecified organism 04/01/2019 GOUELI, BASEM R06.03 Acute respiratory distress 04/01/2019 GOUELI, BASEM C50.919 Malignant neoplasm of unspecified site of unspecified female breast 04/01/2019 GOUELI, BASEM J18.9 Pneumonia, unspecified organism 04/01/2019 GOUELI, BASEM R06.02 Shortness of breath 04/01/2019 GOUELI, BASEM R06.03 Acute respiratory distress 04/02/2019 GOUELI, BASEM C50.919 Malignant neoplasm of unspecified site of unspecified female breast 04/02/2019 GOUELI, BASEM J18.9 Pneumonia, unspecified organism 04/02/2019 GOUELI, BASEM R06.02 Shortness of breath 04/02/2019 GOUELI, BASEM R06.03 Acute respiratory distress 04/02/2019 GOUELI, BASEM C50.919 Malignant neoplasm of unspecified site of unspecified female breast 04/02/2019 GOUELI, BASEM J18.9 Pneumonia, unspecified organism 04/02/2019 GOUELI, BASEM R06.02 Shortness of breath 04/02/2019 GOUELI, BASEM R06.03 Acute respiratory distress 04/02/2019 GOUELI, BASEM C50.919 Malignant neoplasm of unspecified site of unspecified female breast 04/02/2019 GOUELI, BASEM J18.9 Pneumonia, unspecified organism 04/02/2019 GOUELI, BASEM R06.02 Shortness of breath 04/02/2019 GOUELI, BASEM R06.03 Acute respiratory distress 04/02/2019 GOUELI, BASEM C50.919 Malignant neoplasm of unspecified site of unspecified female breast 04/02/2019 GOUELI, BASEM J18.9 Pneumonia, unspecified organism 04/02/2019 MIGELI, BASEM R06.02 Shortness of breath 04/02/2019 GOUELI, BASEM R06.03 Acute respiratory distress 04/03/2019 GOUELI, BASEM C50.919 Malignant neoplasm of unspecified site of unspecified female breast 04/03/2019 MIGELI, BASEM J18.9 Pneumonia, unspecified organism 04/03/2019 GOUELI, BASEM R06.02 Shortness of breath 04/03/2019 GOYESSII, BASEM R06.03 Acute respiratory distress 04/03/2019 GOYESSII, BASEM C50.919 Malignant neoplasm of unspecified site of unspecified female breast 04/03/2019 GOUELI, BASEM J18.9 Pneumonia, unspecified organism 04/03/2019 GOUELI, BASEM R06.02 Shortness of breath 04/03/2019 GOUELI, BASEM R06.03 Acute respiratory distress 04/03/2019 GOUELI, BASEM C50.919 Malignant neoplasm of unspecified site of unspecified female breast 04/03/2019 GOUELI, BASEM J18.9 Pneumonia, unspecified organism 04/03/2019 MIGELI, BASEM R06.02 Shortness of breath 04/03/2019 MIGELI, BASEM R06.03 Acute respiratory distress 04/03/2019 GOUELI, BASEM C50.919 Malignant neoplasm of unspecified site of unspecified female breast 04/03/2019 GOUELI, BASEM J18.9 Pneumonia, unspecified organism 04/03/2019 GOUELI, BASEM R06.02 Shortness of breath 04/03/2019 GOUELI, BASEM R06.03 Acute respiratory distress 04/03/2019 GOUELI, BASEM C50.919 Malignant neoplasm of unspecified site of unspecified female breast 04/03/2019 GOUELI, BASEM J18.9 Pneumonia, unspecified organism 04/03/2019 GOUELI, BASEM R06.02 Shortness of breath 04/03/2019 GOUELI, BASEM R06.03 Acute respiratory distress 04/03/2019 GOUELI, BASEM C50.919 Malignant neoplasm of unspecified site of unspecified female breast 04/03/2019 GOUELI, BASEM J18.9 Pneumonia, unspecified organism 04/03/2019 GOUELI, BASEM R06.02 Shortness of breath 04/03/2019 GOUELI, BASEM R06.03 Acute respiratory distress 04/04/2019 GOUELI, BASEM C50.919 Malignant neoplasm of unspecified site of unspecified female breast 04/04/2019 GOUELI, BASEM J18.9 Pneumonia, unspecified organism 04/04/2019 GOUELI, BASEM R06.02 Shortness of breath 04/04/2019 GOUELI, BASEM R06.03 Acute respiratory distress 04/04/2019 GOUELI, BASEM C50.919 Malignant neoplasm of unspecified site of unspecified female breast 04/04/2019 GOUELI, BASEM J18.9 Pneumonia, unspecified organism 04/04/2019 GOUELI, BASEM R06.02 Shortness of breath 04/04/2019 GOUELI, BASEM R06.03 Acute respiratory distress 04/04/2019 GOUELI, BASEM C50.919 Malignant neoplasm of unspecified site of unspecified female breast 04/04/2019 GOUELI, BASEM J18.9 Pneumonia, unspecified organism 04/04/2019 GOUELI, BASEM R06.02 Shortness of breath 04/04/2019 GOUELI, BASEM R06.03 Acute respiratory distress 04/05/2019 GOUELI, BASEM C50.919 Malignant neoplasm of unspecified site of unspecified female breast 04/05/2019 GOUELI, BASEM J18.9 Pneumonia, unspecified organism 04/05/2019 GOUELI, BASEM R06.02 Shortness of breath 04/05/2019 GOUELI, BASEM R06.03 Acute respiratory distress 04/05/2019 GOUELI, BASEM C50.919 Malignant neoplasm of unspecified site of unspecified female breast 04/05/2019 GOUELI, BASEM J18.9 Pneumonia, unspecified organism 04/05/2019 GOUELI, BASEM R06.02 Shortness of breath 04/05/2019 GOUELI, BASEM R06.03 Acute respiratory distress 04/05/2019 GOUELI, BASEM C50.919 Malignant neoplasm of unspecified site of unspecified female breast 04/05/2019 GOYESSII, BASEM J18.9 Pneumonia, unspecified organism 04/05/2019 MAGDAYESSII, BASEM R06.02 Shortness of breath 04/05/2019 GOYESSII, BASEM R06.03 Acute respiratory distress 04/05/2019 GOYESSII, BASEM C50.919 Malignant neoplasm of unspecified site of unspecified female breast 04/05/2019 MAGDAYESSII, BASEM J18.9 Pneumonia, unspecified organism 04/05/2019 GOYESSII, BASEM R06.02 Shortness of breath 04/05/2019 MIGELI, BASEM R06.03 Acute respiratory distress 04/05/2019 GOYESSII, BASEM C50.919 Malignant neoplasm of unspecified site of unspecified female breast 04/05/2019 GOYESSII, BASEM J18.9 Pneumonia, unspecified organism 04/05/2019 GOUELI, BASEM R06.02 Shortness of breath 04/05/2019 MIGELI, BASEM R06.03 Acute respiratory distress 04/05/2019 GOUELI, BASEM C50.919 Malignant neoplasm of unspecified site of unspecified female breast 04/05/2019 GOYESSII, BASEM J18.9 Pneumonia, unspecified organism 04/05/2019 MIGELI, BASEM R06.02 Shortness of breath 04/05/2019 MAGDAUELI, BASEM R06.03 Acute respiratory distress 04/08/2019 VARSHA GU C50.919 Malignant neoplasm of unspecified site of unspecified female breast 04/09/2019 VARSHA GU C50.919 Malignant neoplasm of unspecified site of unspecified female breast 04/09/2019 VARSHA GU C50.919 Malignant neoplasm of unspecified site of unspecified female breast 04/13/2019 VARSHA GU R32 Unspecified urinary incontinence 04/15/2019 SHRUTHI ARA [id number] Shortness of Breath 04/15/2019 SHRUTHI, ARA [id number] Shortness of Breath 04/15/2019 SHRUTHI, ARA [id number] Shortness of Breath 04/15/2019 SHRUTHI, ARA [id number] Shortness of Breath 04/15/2019 SHRUTHI, ARA [id number] Shortness of Breath 04/15/2019 SHRUTHI ARA R06.00 Dyspnea, unspecified 04/15/2019 SHRUTHI ARA R06.00 Dyspnea, unspecified 04/15/2019 SHRUTHI ARA R06.00 Dyspnea, unspecified 04/27/2019 CHERRIEER, IRIS [id number] Abnormal Lab 04/27/2019 FRETER, IRIS [id number] Abnormal Lab 04/27/2019 FRETER, IRIS [id number] Abnormal Lab 04/27/2019 FRETER, IRIS [id number] Abnormal Lab 04/27/2019 FRETER, IRIS [id number] Abnormal Lab 04/27/2019 FRETER, IRIS D61.818 Other pancytopenia 04/27/2019 FRETER, IRIS W19.XXXA Unspecified fall, initial encounter 04/27/2019 FRETER, IRIS D61.818 Other pancytopenia 04/27/2019 FRETER, IRIS W19.XXXA Unspecified fall, initial encounter 04/27/2019 FRETER, IRIS D61.818 Other pancytopenia 04/27/2019 FRETER, IRIS W19.XXXA Unspecified fall, initial encounter 04/27/2019 FRETER, IRIS D61.818 Other pancytopenia 04/27/2019 FRETER, IRIS W19.XXXA Unspecified fall, initial encounter 04/28/2019 FRETER, IRIS D61.818 Other pancytopenia 04/28/2019 FRETER, IRIS W19.XXXA Unspecified fall, initial encounter 04/28/2019 FRETER, IRIS D61.818 Other pancytopenia 04/28/2019 FRETER, IRIS W19.XXXA Unspecified fall, initial encounter 04/28/2019 FRETER, IRIS D61.818 Other pancytopenia 04/28/2019 FRETER, IRIS W19.XXXA Unspecified fall, initial encounter 04/28/2019 FRETER, IRIS D61.818 Other pancytopenia 04/28/2019 FRETER, IRIS W19.XXXA Unspecified fall, initial encounter 04/28/2019 FRETER, IRIS D61.818 Other pancytopenia 04/28/2019 FRETER, IRIS W19.XXXA Unspecified fall, initial encounter 04/28/2019 FRETER, IRIS D61.818 Other pancytopenia 04/28/2019 FRETER, IRIS W19.XXXA Unspecified fall, initial encounter 04/28/2019 FRETER, IRIS 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 04/28/2019 CHERRIEERIRIS T45.1X5A Adverse effect of antineoplastic and immunosuppressive drugs, initial encounter 04/28/2019 FRETER, IRIS D61.818 Other pancytopenia 04/28/2019 FRETER, IRIS W19.XXXA Unspecified fall, initial encounter 04/28/2019 FRETER, IRIS D61.818 Other pancytopenia 04/28/2019 FRETER, IRIS W19.XXXA Unspecified fall, initial encounter 04/28/2019 FRETER, IRIS D61.818 Other pancytopenia 04/28/2019 FRETER, IRIS 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 04/28/2019 IRIS JARA T45.1X5A Adverse effect of antineoplastic and immunosuppressive drugs, initial encounter 04/28/2019 FRETER, IRIS W19.XXXA Unspecified fall, initial encounter 04/29/2019 FRETER, IRIS D61.818 Other pancytopenia 04/29/2019 FRETER, IRIS 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 04/29/2019 CHERRIEERIRIS T45.1X5A Adverse effect of antineoplastic and immunosuppressive drugs, initial encounter 04/29/2019 FRETER, IRIS W19.XXXA Unspecified fall, initial encounter 04/29/2019 FRETER, IRIS D61.818 Other pancytopenia 04/29/2019 IRIS JARA 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 04/29/2019 IRIS JARA T45.1X5A Adverse effect of antineoplastic and immunosuppressive drugs, initial encounter 04/29/2019 IRIS JARA W19.XXXA Unspecified fall, initial encounter 04/29/2019 IRIS JARA C50.919 Malignant neoplasm of unspecified site of unspecified female breast 04/29/2019 IRIS JARA D61.818 Other pancytopenia 04/29/2019 FRETIRIS KUNZ 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 04/29/2019 IRIS JARA T45.1X5A Adverse effect of antineoplastic and immunosuppressive drugs, initial encounter 04/29/2019 IRIS JARA W19.XXXA Unspecified fall, initial encounter 04/29/2019 IRIS JARA C50.919 Malignant neoplasm of unspecified site of unspecified female breast 04/29/2019 IRIS JARA D61.818 Other pancytopenia 04/29/2019 IRIS JARA 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 04/29/2019 IRIS JARA T45.1X5A Adverse effect of antineoplastic and immunosuppressive drugs, initial encounter 04/29/2019 IRIS JARA W19.XXXA Unspecified fall, initial encounter 04/30/2019 IRIS JARA C50.919 Malignant neoplasm of unspecified site of unspecified female breast 04/30/2019 IRIS JARA D61.818 Other pancytopenia 04/30/2019 IRIS JARA 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 04/30/2019 IRIS JARA T45.1X5A Adverse effect of antineoplastic and immunosuppressive drugs, initial encounter 04/30/2019 IRIS JARA W19.XXXA Unspecified fall, initial encounter 04/30/2019 IRIS JARA C50.919 Malignant neoplasm of unspecified site of unspecified female breast 04/30/2019 IRIS JARA D61.818 Other pancytopenia 04/30/2019 IRIS JARA 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 04/30/2019 IRIS JARA T45.1X5A Adverse effect of antineoplastic and immunosuppressive drugs, initial encounter 04/30/2019 IRIS JARA W19.XXXA Unspecified fall, initial encounter 04/30/2019 IIRS JARA C50.919 Malignant neoplasm of unspecified site of unspecified female breast 04/30/2019 IRIS JARA D61.818 Other pancytopenia 04/30/2019 IRIS JARA 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 04/30/2019 IRIS JARA T45.1X5A Adverse effect of antineoplastic and immunosuppressive drugs, initial encounter 04/30/2019 IRIS JARA W19.XXXA Unspecified fall, initial encounter 04/30/2019 IRIS JARA C50.919 Malignant neoplasm of unspecified site of unspecified female breast 04/30/2019 IRIS JARA D61.818 Other pancytopenia 04/30/2019 IRIS JARA 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 04/30/2019 IRIS JARA T45.1X5A Adverse effect of antineoplastic and immunosuppressive drugs, initial encounter 04/30/2019 IRIS JARA W19.XXXA Unspecified fall, initial encounter 04/30/2019 IRIS JARA C50.919 Malignant neoplasm of unspecified site of unspecified female breast 04/30/2019 IRIS JARA D61.818 Other pancytopenia 04/30/2019 IRIS JARA 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 04/30/2019 IRIS JARA K12.30 Oral mucositis (ulcerative), unspecified 04/30/2019 IRIS JARA T45.1X5A Adverse effect of antineoplastic and immunosuppressive drugs, initial encounter 04/30/2019 IRIS JARA W19.XXXA Unspecified fall, initial encounter 05/01/2019 IRIS JARA C50.919 Malignant neoplasm of unspecified site of unspecified female breast 05/01/2019 IRIS JARA D61.818 Other pancytopenia 05/01/2019 IRIS JARA 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 05/01/2019 IRIS JARA K12.30 Oral mucositis (ulcerative), unspecified 05/01/2019 IRIS JARA T45.1X5A Adverse effect of antineoplastic and immunosuppressive drugs, initial encounter 05/01/2019 IRIS JARA W19.XXXA Unspecified fall, initial encounter 05/01/2019 IRIS JARA C50.919 Malignant neoplasm of unspecified site of unspecified female breast 05/01/2019 IRIS JARA D61.818 Other pancytopenia 05/01/2019 IRIS JARA 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 05/01/2019 IRIS JARA K12.30 Oral mucositis (ulcerative), unspecified 05/01/2019 IRIS JARA T45.1X5A Adverse effect of antineoplastic and immunosuppressive drugs, initial encounter 05/01/2019 IRIS JARA W19.XXXA Unspecified fall, initial encounter 05/01/2019 IRIS JARA C50.919 Malignant neoplasm of unspecified site of unspecified female breast 05/01/2019 IRIS JARA D61.818 Other pancytopenia 05/01/2019 IRIS JARA 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 05/01/2019 IRIS JARA K12.30 Oral mucositis (ulcerative), unspecified 05/01/2019 IRIS JARA T45.1X5A Adverse effect of antineoplastic and immunosuppressive drugs, initial encounter 05/01/2019 IRIS JARA W19.XXXA Unspecified fall, initial encounter 05/02/2019 IRIS JARA C50.919 Malignant neoplasm of unspecified site of unspecified female breast 05/02/2019 IRIS JARA D61.818 Other pancytopenia 05/02/2019 IRIS JARA 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 05/02/2019 IRIS JARA K12.30 Oral mucositis (ulcerative), unspecified 05/02/2019 IRIS JARA T45.1X5A Adverse effect of antineoplastic and immunosuppressive drugs, initial encounter 05/02/2019 IRIS JARA W19.XXXA Unspecified fall, initial encounter 05/03/2019 IRIS JARA C50.919 Malignant neoplasm of unspecified site of unspecified female breast 05/03/2019 IRIS JARA D61.818 Other pancytopenia 05/03/2019 IRIS JARA 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 05/03/2019 IRIS JARA K12.30 Oral mucositis (ulcerative), unspecified 05/03/2019 IRIS JARA T45.1X5A Adverse effect of antineoplastic and immunosuppressive drugs, initial encounter 05/03/2019 IRIS JARA W19.XXXA Unspecified fall, initial encounter 05/03/2019 IRIS JARA C50.919 Malignant neoplasm of unspecified site of unspecified female breast 05/03/2019 IRIS JARA D61.818 Other pancytopenia 05/03/2019 IRIS JARA 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 05/03/2019 IRIS JARA K12.30 Oral mucositis (ulcerative), unspecified 05/03/2019 IRIS JARA T45.1X5A Adverse effect of antineoplastic and immunosuppressive drugs, initial encounter 05/03/2019 IRIS JARA W19.XXXA Unspecified fall, initial encounter 05/03/2019 IRIS JARA C50.919 Malignant neoplasm of unspecified site of unspecified female breast 05/03/2019 IRIS JARA D61.818 Other pancytopenia 05/03/2019 IRIS JARA 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 05/03/2019 IRIS JARA K12.30 Oral mucositis (ulcerative), unspecified 05/03/2019 IRIS JARA T45.1X5A Adverse effect of antineoplastic and immunosuppressive drugs, initial encounter 05/03/2019 IRIS JARA W19.XXXA Unspecified fall, initial encounter 05/03/2019 IRIS JARA C50.919 Malignant neoplasm of unspecified site of unspecified female breast 05/03/2019 IRIS JARA D61.818 Other pancytopenia 05/03/2019 IRIS JARA 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 05/03/2019 IRIS JARA K12.30 Oral mucositis (ulcerative), unspecified 05/03/2019 IRIS JARA T45.1X5A Adverse effect of antineoplastic and immunosuppressive drugs, initial encounter 05/03/2019 IRIS JARA W19.XXXA Unspecified fall, initial encounter 05/03/2019 IRIS JARA C50.919 Malignant neoplasm of unspecified site of unspecified female breast 05/03/2019 IRIS JARA D61.818 Other pancytopenia 05/03/2019 IRIS JARA 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 05/03/2019 IRIS JARA K12.30 Oral mucositis (ulcerative), unspecified 05/03/2019 IRIS JARA T45.1X5A Adverse effect of antineoplastic and immunosuppressive drugs, initial encounter 05/03/2019 IRIS JARA W19.XXXA Unspecified fall, initial encounter 05/03/2019 IRIS JARA C50.919 Malignant neoplasm of unspecified site of unspecified female breast 05/03/2019 IRIS JARA D61.818 Other pancytopenia 05/03/2019 IRIS JARA 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 05/03/2019 IRIS JARA K12.30 Oral mucositis (ulcerative), unspecified 05/03/2019 IRIS JARA T45.1X5A Adverse effect of antineoplastic and immunosuppressive drugs, initial encounter 05/03/2019 IRIS JARA W19.XXXA Unspecified fall, initial encounter 05/03/2019 IRIS JARA C50.919 Malignant neoplasm of unspecified site of unspecified female breast 05/03/2019 IRIS JARA D61.818 Other pancytopenia 05/03/2019 IRIS JARA 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 05/03/2019 IRIS JARA K12.30 Oral mucositis (ulcerative), unspecified 05/03/2019 IRIS JARA T45.1X5A Adverse effect of antineoplastic and immunosuppressive drugs, initial encounter 05/03/2019 IRIS JARA W19.XXXA Unspecified fall, initial encounter 05/03/2019 IRIS JARA C50.919 Malignant neoplasm of unspecified site of unspecified female breast 05/03/2019 IRIS JARA D61.818 Other pancytopenia 05/03/2019 IRIS JARA 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 05/03/2019 IRIS JARA K12.30 Oral mucositis (ulcerative), unspecified 05/03/2019 IRIS JARA T45.1X5A Adverse effect of antineoplastic and immunosuppressive drugs, initial encounter 05/03/2019 IRIS JARA W19.XXXA Unspecified fall, initial encounter 05/05/2019 D61.818 Ot her pancytopenia 05/07/2019 LESLIE GOEL, LANDON Medrano Ot C50.919 MALIGNANT NEOPLASM OF UNSP SITE OF UNSPE 05/07/2019 LESLIE GOEL, LANDON Medrano Ot L03.115 CELLULITIS OF RIGHT LOWER LIMB 05/07/2019 LANDON NELSON MD Ot M25.471 EFFUSION, RIGHT ANKLE 05/07/2019 LANDON NELSON MD Ot Z87.891 PERSONAL HISTORY OF NICOTINE DEPENDENCE 05/07/2019 LANDON NELSON MD Ot Z91.041 RADIOGRAPHIC DYE ALLERGY STATUS 05/07/2019 LANDON NELSON MD Ot Z99. 81 DEPENDENCE ON SUPPLEMENTAL OXYGEN 05/10/2019 LANDON NELSON MD Ot L53. 9 ERYTHEMATOUS CONDITION, UNSPECIFIED 05/10/2019 LANDON NELSON MD Ot M79. 89 OTHER SPECIFIED SOFT TISSUE DISORDERS 05/20/2019 LANDON NELSON MD Ot L53. 9 ERYTHEMATOUS CONDITION, UNSPECIFIED 05/20/2019 LANDON NELSON MD Ot M79. 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 06/11/2019 VARSHA GU C50.919 Malignant neoplasm of unspecified site of unspecified female breast 06/19/2019 R11.0 Nausea 06/19/2019 R51 Headache 08/13/2019 VARSHA GU E87.6 Hypokalemia 10/25/2019 VARSHA GU C50.919 Malignant neoplasm of unspecified site of unspecified female breast 10/25/2019 ALBA YUAN [id number] Generalized Body Aches 10/25/2019 ALBA YUAN J18.9 Pneumonia, unspecified organism 10/25/2019 ALBA YUAN18.9 Pneumonia, unspecified organism 10/25/2019 ALBA YUAN18.9 Pneumonia, unspecified organism 10/25/2019 ALBA YUAN18.9 Pneumonia, unspecified organism 10/25/2019 ALBA YUAN18.9 Pneumonia, unspecified organism 10/25/2019 ALBA YUAN18.9 Pneumonia, unspecified organism 10/25/2019 ALBA YUAN18.9 Pneumonia, unspecified organism 10/25/2019 ALBA YUAN C50.919 Malignant neoplasm of unspecified site of unspecified female breast 10/25/2019 PLUARD, VARSHA C50.919 Malignant neoplasm of unspecified site of unspecified female breast 10/25/2019 PLUARD, VARSHA C50.919 Malignant neoplasm of unspecified site of unspecified female breast 10/25/2019 PLUARD, VARSHA C50.919 Malignant neoplasm of unspecified site of unspecified female breast 10/25/2019 PLUARD, VARSHA C50.919 Malignant neoplasm of unspecified site of unspecified female breast 10/25/2019 PLUARD, VARSHA C50.919 Malignant neoplasm of unspecified site of unspecified female breast 10/25/2019 PLUARD, VARSHA C50.919 Malignant neoplasm of unspecified site of unspecified female breast 10/25/2019 PLUARD, VARSHA C50.919 Malignant neoplasm of unspecified site of unspecified female breast 10/25/2019 PLUARD, VARSHA C50.919 Malignant neoplasm of unspecified site of unspecified female breast 10/25/2019 PLUARD, VARSHA C50.919 Malignant neoplasm of unspecified site of unspecified female breast 10/25/2019 PLUARD, VARSHA C50.919 Malignant neoplasm of unspecified site of unspecified female breast 10/26/2019 ALBA YUAN18.9 Pneumonia, unspecified organism 10/26/2019 ALBA YUAN18.9 Pneumonia, unspecified organism 10/26/2019 ALBA YUAN18.9 Pneumonia, unspecified organism 10/26/2019 ALBA YUAN18.9 Pneumonia, unspecified organism 10/26/2019 ALBA YUAN18.9 Pneumonia, unspecified organism 10/26/2019 VARSHA GU D69.6 Thrombocytopenia, unspecified 10/26/2019 ALBA YUAN18.9 Pneumonia, unspecified organism 10/26/2019 LISSY, ALBA J18.9 Pneumonia, unspecified organism 10/26/2019 ALBA YUAN J18.9 Pneumonia, unspecified organism 10/26/2019 ALBA YUAN J18.9 Pneumonia, unspecified organism 10/27/2019 ALBA YUAN J18.9 Pneumonia, unspecified organism 10/27/2019 ALBA YUAN J18.9 Pneumonia, unspecified organism 10/27/2019 ALBA YUAN J18.9 Pneumonia, unspecified organism 10/28/2019 ALBA YUAN J18.9 Pneumonia, unspecified organism 10/28/2019 ALBA YUAN J18.9 Pneumonia, unspecified organism 10/28/2019 ALBA YUAN J18.9 Pneumonia, unspecified organism 10/28/2019 ALBA YUAN J18.9 Pneumonia, unspecified organism 10/28/2019 ALBA YUAN J18.9 Pneumonia, unspecified organism 10/28/2019 ALBA YUAN J18.9 Pneumonia, unspecified organism 11/10/2019 VARSHA GU MD Ot C50.911 MALIGNANT NEOPLASM OF UNSP SITE OF RIGHT 11/23/2019 VARSHA GU C50.919 Malignant neoplasm of unspecified site of unspecified female breast 11/25/2019 VARSHA GU MD Ot C50.911 MALIGNANT NEOPLASM OF UNSP SITE OF RIGHT 03/14/2020 LANDON NELSON MD Ot L53. 9 ERYTHEMATOUS CONDITION, UNSPECIFIED 03/14/2020 LANDON NELSON MD Ot M79. 89 OTHER SPECIFIED SOFT TISSUE DISORDERS 03/14/2020 VARSHA GU MD Ot C50.911 MALIGNANT NEOPLASM OF UNSP SITE OF RIGHT 03/14/2020 LANDON NELSON MD Ot L53. 9 ERYTHEMATOUS CONDITION, UNSPECIFIED 03/14/2020 LANDON NELSON MD Ot M79. 89 OTHER SPECIFIED SOFT TISSUE DISORDERS 03/14/2020 VARSHA GU MD Ot C50.911 MALIGNANT NEOPLASM OF UNSP SITE OF RIGHT 03/14/2020 LANDON NELSON MD Ot L53. 9 ERYTHEMATOUS CONDITION, UNSPECIFIED 03/14/2020 LANDON NELSON MD Ot M79. 89 OTHER SPECIFIED SOFT TISSUE DISORDERS 03/14/2020 VARSHA GU MD Ot C50.911 MALIGNANT NEOPLASM OF UNSP SITE OF RIGHT Procedures Code Description Performed By Per formed On [id number] XR CHEST 2 VIEWS (PA AND LATERAL) 12/22/[address] CHEST WO CONTRAST 12/23/2018 CBL2211 XR CHEST 2 VIEWS (PA AND LATERAL) 01/28/2019 WZP9215 MR I HEAD W WO CONTRAST 02/18/2019 YPA6847 XR CHEST 2 VIEWS (PA AND LATERAL) 03/01/2019 NHF7858 XR HUMERUS MIN 2 VIEWS RIGHT 03/04/[address] CHEST W CONTRAST 03/24/2019 KDN728 ADELSO SING COMMUNICATION 03/24/2019 [address] TUB E MAINTENANCE 03/24/2019 ECG1 ECG 03/28/2019 IVT3 INSER T PERIPHERAL IV 03/28/2019 CWQ8827 TR OPONIN 03/28/2019 WCL633 ADELSO SING OXYGEN ORDERS/INSTRUCTIONS 03/28/2019 EOD742 BP CHECK ON SPECIFIC SIDE/AREA 03/28/2019 BMY232 CAR DIAC MONITORING 03/28/2019 FOZ416 VIT AL SIGNS 03/28/2019 RT33 PULSE OXIMETRY, CONTINUOUS 03/28/2019 WUG7629 CU LTURE, BLOOD 03/28/2019 DBO3298 CB C AND DIFF (MANUAL DIFF IF NECESSARY) 03/28/2019 XKN4418 CO MPREHENSIVE METABOLIC PANEL 03/28/2019 VGM4104 LA CTATE VENOUS WB 03/28/2019 XVV0234 OH OTHROMBIN TIME/INR 03/28/2019 WBE4874 TR OPONIN 03/28/2019 MHA8810 CU LTURE, BLOOD 03/28/[address] ANGIO CHEST 03/28/2019 OQP0044 RE SPIRATORY PANEL BY PCR 03/28/2019 DRA0849 RE SPIRATORY PANEL BY PCR 03/28/2019 WBD8206 CU LTURE, BLOOD 03/28/2019 ADT9 ED AD JOE TO INPATIENT 03/28/2019 DIET24 DIET 03/28/2019 OWQ874 ADELSO SING COMMUNICATION 03/28/2019 CRM426 TEL EMETRY MONITORING - CLASS III 03/28/2019 XBE9516 TR OPONIN 03/28/2019 FIX310 IP CONSULT TO PHARMACY 03/28/2019 FRE2065 HE PATIC FUNCTION PANEL 03/28/2019 VTP6820 MR SA PCR NASAL SWAB 03/28/2019 COD2 FULL CODE 03/28/2019 PYW1451 BA SIC METABOLIC PANEL 03/28/2019 CTX8245 CB C AND DIFF (MANUAL DIFF IF NECESSARY) 03/28/2019 WLC745 ACT IVITY TOLERATED 03/28/2019 SQT906 NOT JACLYN PHYSICIAN 03/28/2019 EYU910 VIT AL SIGNS 03/28/2019 KBL900 CON TINUOUS PULSE OXIMETRY 03/28/2019 YZN859 TEL EMETRY MONITORING - CLASS III 03/28/2019 OT1 OT KATHARINE L AND TREAT 03/28/2019 PT4 PT KATHARINE L AND TREAT 03/28/2019 LAK5437 TR OPONIN 03/28/2019 RT51 OXYGEN 03/28/2019 PBT1673 TR OPONIN 03/28/2019 HSO2734 MR SA PCR NASAL SWAB 03/28/2019 TTV949 NJ LY WEIGHTS 03/29/2019 UEY6154 BA SIC METABOLIC PANEL 03/29/2019 JKL4168 CB C AND DIFF (MANUAL DIFF IF NECESSARY) 03/29/2019 UIY8210 HE PATIC FUNCTION PANEL 03/29/2019 CON54 IP C ONSULT TO PULMONOLOGY 03/29/2019 FGU6254 CB C AND DIFF (MANUAL DIFF IF NECESSARY) 03/29/2019 HGM4918 CO MPREHENSIVE METABOLIC PANEL 03/29/2019 PRZ1723 AR TERIAL BLOOD GAS 03/29/2019 JLU6455 XR CHEST SINGLE VIEW FRONTAL 03/29/2019 ECG1 ECG 03/29/2019 WVG5014 CU LTURE, SPUTUM WITH GRAM STAIN 03/29/2019 ADT7 TRANS SEAN PATIENT 03/29/2019 XIZ1036 GL UCOSE POC 03/29/2019 TSD895 ALEKSEY SON FOR NO VTE PROPHYLAXIS - PHARMACOLOGICAL 03/29/2019 IVT3 INSER T PERIPHERAL IV 03/29/2019 VLS662 NOT JACLYN PHYSICIAN 03/29/2019 LMA291 INT FRED AND OUTPUT 03/29/2019 ZHF209 ZONIA RO/VASCULAR CHECKS 03/29/2019 XBI010 VIT AL SIGNS 03/29/2019 NUR51 ELEV ATE HOB 03/29/2019 GYM351 OLGA LIDIA CE SEQUENTIAL COMPRESSION DEVICE 03/29/2019 SKY178 SWATHI NTAIN SEQUENTIAL COMPRESSION DEVICE 03/29/2019 NVQ890 CON TINUOUS PULSE OXIMETRY 03/29/2019 MMH773 GLU COSE POC 03/29/2019 RT25 RESPI RATORY COMMUNICATION 03/29/2019 RT51 OXYGEN 03/29/2019 JOD3591 OH OCALCITONIN 03/29/2019 RT82 PEP DEVICE 03/29/2019 CAZ0427 CU LTURE, SPUTUM WITH GRAM STAIN 03/29/2019 KRQ0254 MR SA PCR NASAL SWAB 03/29/2019 UIP6956 LE GIONELLA URINE ANTIGEN 03/29/[address] REP PNEUMONIAE URINE ANTIGEN 03/29/2019 BQG8593 MR SA PCR NASAL SWAB 03/29/2019 GTT1156 MA GNESIUM 03/29/2019 ZDV7632 PH OSPHORUS 03/29/2019 VET4004 OH OCALCITONIN 03/29/2019 MBI1903 MA GNESIUM 03/29/2019 HYQ9566 PH OSPHORUS 03/29/2019 LFO0702 LE GIONELLA URINE ANTIGEN 03/29/[address] REP PNEUMONIAE URINE ANTIGEN 03/29/2019 QDR3615 CU LTURE, SPUTUM WITH GRAM STAIN 03/29/2019 JMY5692 XR CHEST SINGLE VIEW FRONTAL 03/29/2019 ECG1 ECG 03/29/2019 ECG1 ECG 03/29/2019 BEQ5130 RENATO GNESIUM 03/29/2019 JBS0689 RE NAL PANEL 03/29/2019 MKJ3865 XR CHEST SINGLE VIEW FRONTAL 03/29/2019 RT12 BIPAP 03/29/2019 TVT791 NJ LY WEIGHTS 03/30/2019 YDA7170 CO MPLETE BLOOD COUNT 03/30/2019 UIN3230 RENATO GNESIUM 03/30/2019 SKI3085 RE NAL PANEL 03/30/2019 MMC1438 CB C AND DIFF (MANUAL DIFF IF NECESSARY) 03/30/2019 GYT4974 CO MPREHENSIVE METABOLIC PANEL 03/30/2019 MMQ0281 XR CHEST SINGLE VIEW FRONTAL 03/30/2019 NFO3598 HE MOGLOBIN AND HEMATOCRIT 03/30/2019 YJH3857 RENATO GNESIUM 03/30/2019 UOW5566 HE MOGLOBIN AND HEMATOCRIT 03/30/2019 NBP2757 XR CHEST SINGLE VIEW FRONTAL 03/30/2019 MKU1888 CO MPREHENSIVE METABOLIC PANEL 03/30/2019 RT12 BIPAP 03/30/2019 CQX5971 CB C AND DIFF (MANUAL DIFF IF NECESSARY) 03/31/2019 DPX8474 CO MPREHENSIVE METABOLIC PANEL 03/31/2019 ONQ1257 RENATO GNESIUM 03/31/2019 TFM9117 CB C AND DIFF (MANUAL DIFF IF NECESSARY) 03/31/2019 SXR2224 CO MPREHENSIVE METABOLIC PANEL 03/31/2019 ELJ1034 XR CHEST SINGLE VIEW FRONTAL 03/31/2019 DIET24 DIET 03/31/2019 ACC0193 TR OPONIN 03/31/2019 ECG1 ECG 03/31/2019 NUL800 GLU COSE POC 03/31/2019 CVY8021 GL UCOSE POC 03/31/2019 DDH3737 XR CHEST SINGLE VIEW FRONTAL 03/31/2019 ADT7 TRANS SEAN PATIENT 03/31/2019 KAN921 NOT JACLYN PHYSICIAN 03/31/2019 RSO983 ADELSO SING COMMUNICATION 03/31/2019 UMU1426 GL UCOSE POC 03/31/2019 STR853 TEL EMETRY MONITORING - CLASS I 03/31/2019 EZN3948 GL UCOSE POC 03/31/2019 WQC793 GLU COSE POC 04/01/2019 RZV9924 CB C AND DIFF (MANUAL DIFF IF NECESSARY) 04/01/2019 JXJ4366 CO MPREHENSIVE METABOLIC PANEL 04/01/2019 RFR9592 CB C AND DIFF (MANUAL DIFF IF NECESSARY) 04/01/2019 NFU7641 CO MPREHENSIVE METABOLIC PANEL 04/01/2019 HSQ2020 PO TASSIUM 04/01/2019 NXH1509 XR CHEST SINGLE VIEW FRONTAL 04/01/2019 AHK1306 GL UCOSE POC 04/01/2019 IZK2156 GL UCOSE POC 04/01/2019 VOR4255 GL UCOSE POC 04/01/2019 JPG7813 GL UCOSE POC 04/01/2019 XJU217 GLU COSE POC 04/02/2019 TGH5638 CB C AND DIFF (MANUAL DIFF IF NECESSARY) 04/02/2019 EJC2900 CO MPREHENSIVE METABOLIC PANEL 04/02/2019 LZR1740 CB C AND DIFF (MANUAL DIFF IF NECESSARY) 04/02/2019 WRD4793 CO MPREHENSIVE METABOLIC PANEL 04/02/2019 MOH6233 GL UCOSE POC 04/02/2019 ECG1 ECG 04/02/2019 STM3424 GL UCOSE POC 04/02/2019 PTU7309 GL UCOSE POC 04/02/2019 ICU4951 GL UCOSE POC 04/02/2019 OMW045 GLU COSE POC 04/03/2019 QTH7677 CB C AND DIFF (MANUAL DIFF IF NECESSARY) 04/03/2019 MPM1621 CO MPREHENSIVE METABOLIC PANEL 04/03/2019 YGA0786 CB C AND DIFF (MANUAL DIFF IF NECESSARY) 04/03/2019 GXA5760 CO MPREHENSIVE METABOLIC PANEL 04/03/2019 XUD5278 PO TASSIUM 04/03/2019 [id number] GL UCOSE POC 04/03/2019 CON71 IP C ONSULT TO HOME CARE NEEDS 04/03/2019 [id number] GL UCOSE POC 04/03/2019 [id number] GL UCOSE POC 04/03/2019 [id number] TH YROID STIMULATING HORMONE 04/03/2019 [id number] GL UCOSE POC 04/03/2019 [id number] GLU COSE POC 04/04/2019 [id number] CB C AND DIFF (MANUAL DIFF IF NECESSARY) 04/04/2019 [id number] CO MPREHENSIVE METABOLIC PANEL 04/04/2019 [id number] TH YROID STIMULATING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 15:41 GLUCOSE POC 201 70-100 GLUCOSE POC - 03/31/19 20:10 GLUCOSE POC 154 70-100 COMPREHENSIVE METABOLIC PANEL - 04/01/19 02:55 Alanine Aminotransferase 31 0-34 Albumin 2.6 3.5-5.0 Alkaline Phosphatase 248 42-140 Aspartate Aminotransferase 56 15- 46 Blood Urea Nitrogen 18 7-26 Chloride 95 96-112 Carbon Dioxide 39 20-32 Creatinine 0.5 0.4-1.1 Glucose 200 70-100 Potassium 3.4 3.5-5.3 Sodium 137 133-147 Calcium 7.9 8.4-10.5 Anion Gap 3 TX 5-17 Protein Total Serum 5.1 6.0-8.2 BILIRUBIN TOTAL 0.4 0.2-1.3 GFR FEMALE AA >130 60-200 GFR FEMALE NON-AA >130 60-200 CBC AND DIFF (MANUAL DIFF IF NECESSARY) - 04/01/19 02:55 WBC 13.42 4.00-11.00 Hematocrit 24 36-45 Hemoglobin 7.8 12.0-15.0 MCH 31 27-34 MCHC 32 32-36 MCV 96 80-99 MPV 9.8 9.4-12.3 Platelet Count 48 140-400 RBC 2.52 4.00-5.00 RDW 18.2 11.5-14.5 NUCLEATED RBCS 0 0-0 % NEUTROPHILS 92 45-78 %LYMPHOCYTES 3 15-47 %MONOCYTES 2 0-12 %EOSINOPHILS 0 0-7 %BASOPHILS 0 0-2 % IMM GRANS 2 0-1 # GRANULOCYTES 12.71 1.70-6.80 # LYMPHOCYTES 0.41 1.00-3.30 # MONOCYTES 0.24 0.20-0.90 # EOSINOPHILS 0.00 0.00-0.40 # BASOPHILS 0.06 0.00-0.10 RBC MORPHOLOGY Normal Normal TOXIC GRANULATION Present Absent VACUOLATED NEUTROPHILS Present Absent GLUCOSE POC - 04/01/19 08:15 GLUCOSE POC 128 70-100 GLUCOSE POC - 04/01/19 11:30 GLUCOSE POC 174 70-100 GLUCOSE POC - 04/01/19 17:17 GLUCOSE POC 163 70-100 GLUCOSE POC - 04/01/19 20:42 GLUCOSE POC 116 70-100 COMPREHENSIVE METABOLIC PANEL - 04/02/19 01:25 Alanine Aminotransferase 59 0-34 Albumin 2.7 3.5-5.0 Alkaline Phosphatase 241 42-140 Aspartate Aminotransferase 90 15- 46 Blood Urea Nitrogen 18 7-26 Chloride 94 96-112 Carbon Dioxide 41 20-32 Creatinine 0.6 0.4-1.1 Glucose 109 70-100 Potassium 3.7 3.5-5.3 Sodium 139 133-147 Calcium 7.6 8.4-10.5 Anion Gap 4 TX 5-17 Protein Total Serum 5.2 6.0-8.2 BILIRUBIN TOTAL 0.5 0.2-1.3 GFR FEMALE AA 127 60-200 GFR FEMALE NON-AA 106 60-200 CBC AND DIFF (MANUAL DIFF IF NECESSARY) - 04/02/19 01:25 WBC 14.72 4.00-11.00 Hematocrit 25 36-45 Hemoglobin 8.1 12.0-15.0 MCH 31 27-34 MCHC 32 32-36 MCV 95 80-99 MPV 9.0 9.4-12.3 Platelet Count 41 140-400 RBC 2.62 4.00-5.00 RDW 18.1 11.5-14.5 NUCLEATED RBCS 0 0-0 % NEUTROPHILS 89 45-78 %LYMPHOCYTES 7 15-47 %MONOCYTES 3 0-12 # GRANULOCYTES 13.25 1.70-6.80 # LYMPHOCYTES 1.03 1.00-3.30 # MONOCYTES 0.44 0.20-0.90 # EOSINOPHILS 0.00 0.00-0.40 # BASOPHILS 0.00 0.00-0.10 RBC MORPHOLOGY Normal Normal % METAMYELOCYTES 1 0-0 TOXIC GRANULATION Present Absent GLUCOSE POC - 04/02/19 08:02 GLUCOSE POC 101 70-100 GLUCOSE POC - 04/02/19 11:44 GLUCOSE POC 153 70-100 GLUCOSE POC - 04/02/19 17:36 GLUCOSE POC 139 70-100 GLUCOSE POC - 04/02/19 20:35 GLUCOSE POC 187 70-100 COMPREHENSIVE METABOLIC PANEL - 04/03/19 01:10 Alanine Aminotransferase 51 0-34 Albumin 2.6 3.5-5.0 Alkaline Phosphatase 196 42-140 Aspartate Aminotransferase 57 15- 46 Blood Urea Nitrogen 23 7-26 Chloride 96 96-112 Carbon Dioxide 40 20-32 Creatinine 0.5 0.4-1.1 Glucose 126 70-100 Potassium 2.9 3.5-5.3 Sodium 138 133-147 Calcium 8.2 8.4-10.5 Anion Gap 2 TX 5-17 Protein Total Serum 4.8 6.0-8.2 BILIRUBIN TOTAL 0.3 0.2-1.3 GFR FEMALE AA >130 60-200 GFR FEMALE NON-AA >130 60-200 CBC AND DIFF (MANUAL DIFF IF NECESSARY) - 04/03/19 01:10 WBC 12.33 4.00-11.00 Hematocrit 25 36-45 Hemoglobin 7.9 12.0-15.0 MCH 31 27-34 MCHC 32 32-36 MCV 96 80-99 MPV 9.2 9.4-12.3 Platelet Count 31 140-400 RBC 2.56 4.00-5.00 RDW 18.5 11.5-14.5 Hypersegmented Polys Present Absent Ovalocytes Present Absent Polychromasia Present Absent NUCLEATED RBCS 1 0-0 % NEUTROPHILS 87 45-78 %LYMPHOCYTES 6 15-47 %MONOCYTES 3 0-12 %EOSINOPHILS 0 0-7 %BASOPHILS 0 0-2 # GRANULOCYTES 11.22 1.70-6.80 # LYMPHOCYTES 0.74 1.00-3.30 # MONOCYTES 0.37 0.20-0.90 # EOSINOPHILS 0.00 0.00-0.40 # BASOPHILS 0.03 0.00-0.10 % METAMYELOCYTES 3 0-0 BASOPHILIC STIPPLING Present Absent %MYELOCYTES 1 0-0 TEAR DROP CELLS Present Absent GLUCOSE POC - 04/03/19 07:44 GLUCOSE POC 76 70-100 GLUCOSE POC - 04/03/19 12:17 GLUCOSE POC 129 70-100 GLUCOSE POC - 04/03/19 17:21 GLUCOSE POC 132 70-100 GLUCOSE POC - 04/03/19 21:22 GLUCOSE POC 143 70-100 CBC AND DIFF (MANUAL DIFF IF NECESSARY) - 04/04/19 04:47 WBC 5.43 4.00-11.00 Hematocrit 24 36-45 Hemoglobin 7.5 12.0-15.0 MCH 31 27-34 MCHC 32 32-36 MCV 97 80-99 MPV 9.7 9.4-12.3 Platelet Count 27 140-400 RBC 2.44 4.00-5.00 RDW 18.6 11.5-14.5 Ovalocytes Present Absent Polychromasia Present Absent NUCLEATED RBCS 3 0-0 % NEUTROPHILS 81 45-78 %LYMPHOCYTES 10 15-47 %MONOCYTES 5 0-12 %EOSINOPHILS 0 0-7 %BASOPHILS 0 0-2 # GRANULOCYTES 4.62 1.70-6.80 # LYMPHOCYTES 0.54 1.00-3.30 # MONOCYTES 0.27 0.20-0.90 # EOSINOPHILS 0.00 0.00-0.40 # BASOPHILS 0.00 0.00-0.10 % METAMYELOCYTES 3 0-0 TOXIC GRANULATION Present Absent BASOPHILIC STIPPLING Present Absent %MYELOCYTES 1 0-0 THYROID STIMULATING HORMONE - 04/04/19 0 4:47 Thyroid Stimulating Hormone 2.29 0. 47-4.68 COMPREHENSIVE METABOLIC PANEL - 04/04/19 04:47 Alanine Aminotransferase 55 0-34 Albumin 2.5 3.5-5.0 Alkaline Phosphatase 163 42-140 Aspartate Aminotransferase 60 15- 46 Blood Urea Nitrogen 20 7-26 Chloride 101 96-112 Carbon Dioxide 36 20-32 Creatinine 0.5 0.4-1.1 Glucose 94 70-100 Potassium 3.7 3.5-5.3 Sodium 140 133-147 Calcium 8.2 8.4-10.5 Anion Gap 3 TX 5-17 Protein Total Serum 4.7 6.0-8.2 BILIRUBIN TOTAL 0.3 0.2-1.3 GFR FEMALE AA >130 60-200 GFR FEMALE NON-AA >130 60-200 GLUCOSE POC - 04/04/19 07:24 GLUCOSE POC 76 70-100 GLUCOSE POC - 04/04/19 16:11 GLUCOSE POC 116 70-100 GLUCOSE POC - 04/04/19 18:24 GLUCOSE POC 136 70-100 GLUCOSE POC - 04/04/19 20:43 GLUCOSE POC 121 70-100 COMPREHENSIVE METABOLIC PANEL - 04/05/19 06:00 Alanine Aminotransferase 55 0-34 Albumin 2.6 3.5-5.0 Alkaline Phosphatase 165 42-140 Aspartate Aminotransferase 63 15- 46 Blood Urea Nitrogen 17 7-26 Chloride 100 96-112 Carbon Dioxide 37 20-32 Creatinine 0.4 0.4-1.1 Glucose 75 70-100 Potassium 3.7 3.5-5.3 Sodium 140 133-147 Calcium 8.5 8.4-10.5 Anion Gap 2 TX 5-17 Protein Total Serum 4.9 6.0-8.2 BILIRUBIN TOTAL 0.3 0.2-1.3 GFR FEMALE AA >130 60-200 GFR FEMALE NON-AA >130 60-200 CBC AND DIFF (MANUAL DIFF IF NECESSARY) - 04/05/19 06:00 WBC 5.50 4.00-11.00 Hematocrit 24 36-45 Hemoglobin 7.7 12.0-15.0 MCH 31 27-34 MCHC 32 32-36 MCV 98 80-99 MPV 10.7 9.4-12.3 Platelet Count 30 140-400 RBC 2.49 4.00-5.00 RDW 18.6 11.5-14.5 Polychromasia Present Absent NUCLEATED RBCS 2 0-0 % NEUTROPHILS 80 45-78 %LYMPHOCYTES 12 15-47 %MONOCYTES 4 0-12 %EOSINOPHILS 0 0-7 %BASOPHILS 0 0-2 # GRANULOCYTES 4.62 1.70-6.80 # LYMPHOCYTES 0.66 1.00-3.30 # MONOCYTES 0.22 0.20-0.90 # EOSINOPHILS 0.00 0.00-0.40 # BASOPHILS 0.00 0.00-0.10 % METAMYELOCYTES 3 0-0 BASOPHILIC STIPPLING Present Absent %MYELOCYTES 1 0-0 GLUCOSE POC - 04/05/19 08:05 GLUCOSE POC 80 70-100 GLUCOSE POC - 04/05/19 12:03 GLUCOSE POC 127 70-100 CBC AND DIFF (MANUAL DIFF IF NECESSARY) - 04/08/19 14:11 WBC 4.2 4.0-11.0 Hematocrit 26 36-45 Hemoglobin 8.4 12.0-15.0 MCH 31 27-34 MCHC 32 32-36 MCV 98 80-99 MPV 9.2 9.4-12.3 Platelet Count 63 140-400 RBC 2.68 4.00-5.00 RDW 19.8 11.5-14.5 % NEUTROPHILS 79 45-78 %LYMPHOCYTES 11 15-47 %MONOCYTES 10 0-12 # GRANULOCYTES 3.3 1.7-6.8 # LYMPHOCYTES 0.5 1.0-3.3 # MONOCYTES 0.4 0.2-0.9 COMPREHENSIVE METABOLIC PANEL - 04/08/19 14:11 Alanine Aminotransferase 58 0-34 Albumin 3.4 3.5-5.0 Alkaline Phosphatase 237 42-140 Aspartate Aminotransferase 69 15- 46 Blood Urea Nitrogen 13 7-26 Chloride 102 96-112 Carbon Dioxide 33 20-32 Creatinine 0.7 0.4-1.1 Glucose 123 70-100 Potassium 4.3 3.5-5.3 Sodium 139 133-147 Calcium 9.5 8.4-10.5 Anion Gap 5 TX 5-17 Protein Total Serum 6.1 6.0-8.2 BILIRUBIN TOTAL 0.3 0.2-1.3 GFR FEMALE AA 107 60-200 GFR FEMALE NON-AA 89 60-200 MAGNESIUM - 04/08/19 14:11 Magnesium 2.3 1.4-2.7 PHOSPHORUS - 04/08/19 14:11 Phosphorus 2.0 2.5-4.5 CA 15.3 - 04/08/19 14:11 CA 15.3 186.6 0.0-31.3 CBC AND DIFF (MANUAL DIFF IF NECESSARY) - 04/13/19 11:50 WBC 3.17 4.00-11.00 Hematocrit 27 36-45 Hemoglobin 8.4 12.0-15.0 MCH 32 27-34 MCHC 32 32-36 MCV 101 80-99 MPV 10.0 9.4-12.3 Platelet Count 102 140-400 RBC 2.63 4.00-5.00 RDW 22.4 11.5-14.5 NUCLEATED RBCS 3 0-0 % NEUTROPHILS 73 45-78 %LYMPHOCYTES 9 15-47 %MONOCYTES 16 0-12 %EOSINOPHILS 0 0-7 %BASOPHILS 0 0-2 % IMM GRANS 2 0-1 # GRANULOCYTES 2.38 1.70-6.80 # LYMPHOCYTES 0.28 1.00-3.30 # MONOCYTES 0.51 0.20-0.90 # EOSINOPHILS 0.00 0.00-0.40 # BASOPHILS 0.00 0.00-0.10 COMPREHENSIVE METABOLIC PANEL - 04/13/19 11:50 Alanine Aminotransferase 39 0-34 Albumin 3.2 3.5-5.0 Alkaline Phosphatase 208 42-140 Aspartate Aminotransferase 36 15- 46 Blood Urea Nitrogen 23 7-26 Chloride 102 96-112 Carbon Dioxide 34 20-32 Creatinine 0.5 0.4-1.1 Glucose 82 70-100 Potassium 4.7 3.5-5.3 Sodium 139 133-147 Calcium 9.0 8.4-10.5 Anion Gap 2 TX 5-17 Protein Total Serum 5.7 6.0-8.2 BILIRUBIN TOTAL 0.4 0.2-1.3 GFR FEMALE AA >130 60-200 GFR FEMALE NON-AA >130 60-200 LACTATE VENOUS WB - 04/15/19 14:30 LACTATE VENOUS 2.1 0.0-2.0 BASIC METABOLIC PANEL - 04/15/19 14:30 Blood Urea Nitrogen 33 7-26 Chloride 98 96-112 Carbon Dioxide 31 20-32 Creatinine 0.6 0.4-1.1 Glucose 87 70-100 Potassium 4.1 3.5-5.3 Sodium 136 133-147 Calcium 8.6 8.4-10.5 Anion Gap 7 TX 5-17 GFR FEMALE AA 127 60-200 GFR FEMALE NON-AA 106 60-200 NTPROBNP - 04/15/19 14:30 NTproBNP 713 NRG CBC AND DIFF (MANUAL DIFF IF NECESSARY) - 04/15/19 14:30 WBC 3.14 4.00-11.00 Hematocrit 31 36-45 Hemoglobin 9.9 12.0-15.0 MCH 33 27-34 MCHC 32 32-36 MCV 100 80-99 MPV 9.8 9.4-12.3 Platelet Count 102 140-400 RBC 3.05 4.00-5.00 RDW 22.9 11.5-14.5 Ovalocytes Present Absent Polychromasia Present Absent NUCLEATED RBCS 4 0-0 % NEUTROPHILS 81 45-78 %LYMPHOCYTES 8 15-47 %MONOCYTES 9 0-12 %EOSINOPHILS 0 0-7 %BASOPHILS 0 0-2 % IMM GRANS 1 0-1 # GRANULOCYTES 2.58 1.70-6.80 # LYMPHOCYTES 0.26 1.00-3.30 # MONOCYTES 0.29 0.20-0.90 # EOSINOPHILS 0.01 0.00-0.40 # BASOPHILS 0.00 0.00-0.10 LEFT SHIFT Present Absent VACUOLATED NEUTROPHILS Present Absent BASOPHILIC STIPPLING Present Absent TEAR DROP CELLS Present Absent CULTURE, BLOOD - 04/15/19 15:20 Culture result No Growth at 5 days NRG CULTURE, BLOOD - 04/15/19 15:38 Culture result No Growth at 5 days NRG CBC AND DIFF (MANUAL DIFF IF NECESSARY) - 04/27/19 14:47 WBC 0.94 4.00-11.00 Hematocrit 23 36-45 Hemoglobin 7.6 12.0-15.0 MCH 33 27-34 MCHC 34 32-36 MCV 97 80-99 MPV 11.6 9.4-12.3 Platelet Count 35 140-400 RBC 2.34 4.00-5.00 RDW 20.0 11.5-14.5 Polychromasia Present Absent NUCLEATED RBCS 0 0-0 % NEUTROPHILS 36 45-78 %LYMPHOCYTES 51 15-47 %MONOCYTES 9 0-12 %EOSINOPHILS 1 0-7 %BASOPHILS 1 0-2 % IMM GRANS 0 0-1 # GRANULOCYTES 0.36 1.70-6.80 # LYMPHOCYTES 0.48 1.00-3.30 # MONOCYTES 0.08 0.20-0.90 # EOSINOPHILS 0.01 0.00-0.40 # BASOPHILS 0.01 0.00-0.10 % METAMYELOCYTES 2 0-0 TOXIC GRANULATION Present Absent VACUOLATED NEUTROPHILS Present Absent COMPREHENSIVE METABOLIC PANEL - 04/27/19 14:47 Alanine Aminotransferase 15 0-34 Albumin 3.1 3.5-5.0 Alkaline Phosphatase 327 42-140 Aspartate Aminotransferase 35 15- 46 Blood Urea Nitrogen 14 7-26 Chloride 101 96-112 Carbon Dioxide 23 20-32 Creatinine 0.4 0.4-1.1 Glucose 86 70-100 Potassium 5.0 3.5-5.3 Sodium 136 133-147 Calcium 9.7 8.4-10.5 Anion Gap 12 TX 5-17 Protein Total Serum 5.6 6.0-8.2 BILIRUBIN TOTAL 1.1 0.2-1.3 GFR FEMALE AA >130 60-200 GFR FEMALE NON-AA >130 60-200 GLUCOSE POC - 04/27/19 16:26 GLUCOSE POC 63 70-100 LACTATE VENOUS WB - 04/27/19 17:30 LACTATE VENOUS 1.4 0.0-2.0 COMPREHENSIVE METABOLIC PANEL - 04/27/19 17:30 Alanine Aminotransferase 16 0-34 Albumin 3.5 3.5-5.0 Alkaline Phosphatase 345 42-140 Aspartate Aminotransferase 37 15- 46 Blood Urea Nitrogen 15 7-26 Chloride 100 96-112 Carbon Dioxide 25 20-32 Creatinine 0.4 0.4-1.1 Glucose 90 70-100 Potassium 4.4 3.5-5.3 Sodium 136 133-147 Calcium 9.0 8.4-10.5 Anion Gap 11 TX 5-17 Protein Total Serum 6.7 6.0-8.2 BILIRUBIN TOTAL 1.1 0.2-1.3 GFR FEMALE AA >130 60-200 GFR FEMALE NON-AA >130 60-200 CBC AND DIFF (MANUAL DIFF IF NECESSARY) - 04/27/19 17:30 WBC 1.14 4.00-11.00 Hematocrit 23 36-45 Hemoglobin 7.7 12.0-15.0 MCH 33 27-34 MCHC 33 32-36 MCV 98 80-99 MPV 11.1 9.4-12.3 Platelet Count 38 140-400 RBC 2.37 4.00-5.00 RDW 19.9 11.5-14.5 Ovalocytes Present Absent Polychromasia Present Absent NUCLEATED RBCS 2 0-0 % NEUTROPHILS 39 45-78 %LYMPHOCYTES 38 15-47 %MONOCYTES 16 0-12 %EOSINOPHILS 6 0-7 %BASOPHILS 1 0-2 # GRANULOCYTES 0.44 1.70-6.80 # LYMPHOCYTES 0.43 1.00-3.30 # MONOCYTES 0.18 0.20-0.90 # EOSINOPHILS 0.07 0.00-0.40 # BASOPHILS 0.01 0.00-0.10 TOXIC GRANULATION Present Absent VACUOLATED NEUTROPHILS Present Absent TEAR DROP CELLS Present Absent ANTIBODY SCREEN - 04/27/19 17:30 Antibody Screen Negative Negative [facility] TYPE - 04/27/19 17:30 [facility] Type AB Positive [facility] - 04/27/19 18:45 CULTURE, BLOOD - 04/27/19 19:18 Culture result No Growth at 5 days [facility] - 04/27/19 20:18 CULTURE, BLOOD - 04/27/19 20:20 Culture result No Growth at 5 days [facility] BASIC METABOLIC PANEL - 04/28/19 06:02 Blood Urea Nitrogen 13 7-26 Chloride 103 96-112 Carbon Dioxide 27 20-32 Creatinine 0.4 0.4-1.1 Glucose 67 70-100 Potassium 4.4 3.5-5.3 Sodium 136 133-147 Calcium 8.3 8.4-10.5 Anion Gap 6 TX 5-17 GFR FEMALE AA >130 60-200 GFR FEMALE NON-AA >130 60-200 CBC AND DIFF (MANUAL DIFF IF NECESSARY) - 04/28/19 06:02 WBC 0.95 4.00-11.00 Hematocrit 22 36-45 Hemoglobin 7.3 12.0-15.0 MCH 32 27-34 MCHC 33 32-36 MCV 97 80-99 MPV 11.4 9.4-12.3 Platelet Count 65 140-400 RBC 2.30 4.00-5.00 RDW 19.9 11.5-14.5 Polychromasia Present Absent NUCLEATED RBCS 4 0-0 % NEUTROPHILS 52 45-78 %LYMPHOCYTES 24 15-47 %MONOCYTES 20 0-12 %EOSINOPHILS 2 0-7 %BASOPHILS 0 0-2 # GRANULOCYTES 0.51 1.70-6.80 # LYMPHOCYTES 0.23 1.00-3.30 # MONOCYTES 0.19 0.20-0.90 # EOSINOPHILS 0.02 0.00-0.40 # BASOPHILS 0.00 0.00-0.10 % METAMYELOCYTES 1 0-0 TOXIC GRANULATION Present Absent VACUOLATED NEUTROPHILS Present Absent %MYELOCYTES 1 0-0 TEAR DROP CELLS Present Absent COMPREHENSIVE METABOLIC PANEL - 04/29/19 01:55 Alanine Aminotransferase 15 0-34 Albumin 2.8 3.5-5.0 Alkaline Phosphatase 299 42-140 Aspartate Aminotransferase 33 15- 46 Blood Urea Nitrogen 12 7-26 Chloride 100 96-112 Carbon Dioxide 27 20-32 Creatinine 0.4 0.4-1.1 Glucose 107 70-100 Potassium 4.4 3.5-5.3 Sodium 134 133-147 Calcium 8.9 8.4-10.5 Anion Gap 7 TX 5-17 Protein Total Serum 5.3 6.0-8.2 BILIRUBIN TOTAL 0.8 0.2-1.3 GFR FEMALE AA >130 60-200 GFR FEMALE NON-AA >130 60-200 CBC AND DIFF (MANUAL DIFF IF NECESSARY) - 04/29/19 01:55 WBC 1.61 4.00-11.00 Hematocrit 26 36-45 Hemoglobin 8.5 12.0-15.0 MCH 32 27-34 MCHC 33 32-36 MCV 96 80-99 MPV 10.6 9.4-12.3 Platelet Count 64 140-400 RBC 2.68 4.00-5.00 RDW 19.9 11.5-14.5 NUCLEATED RBCS 1 0-0 % NEUTROPHILS 73 45-78 %LYMPHOCYTES 11 15-47 %MONOCYTES 13 0-12 %EOSINOPHILS 1 0-7 %BASOPHILS 0 0-2 # GRANULOCYTES 1.21 1.70-6.80 # LYMPHOCYTES 0.18 1.00-3.30 # MONOCYTES 0.21 0.20-0.90 # EOSINOPHILS 0.02 0.00-0.40 # BASOPHILS 0.00 0.00-0.10 % METAMYELOCYTES 2 0-0 TOXIC GRANULATION Present Absent COMPREHENSIVE METABOLIC PANEL - 04/30/19 05:15 Alanine Aminotransferase 14 0-34 Albumin 2.5 3.5-5.0 Alkaline Phosphatase 246 42-140 Aspartate Aminotransferase 25 15- 46 Blood Urea Nitrogen 8 7-26 Chloride 100 96-112 Carbon Dioxide 28 20-32 Creatinine 0.4 0.4-1.1 Glucose 96 70-100 Potassium 3.9 3.5-5.3 Sodium 136 133-147 Calcium 8.7 8.4-10.5 Anion Gap 7 TX 5-17 Protein Total Serum 4.8 6.0-8.2 BILIRUBIN TOTAL 0.5 0.2-1.3 GFR FEMALE AA >130 60-200 GFR FEMALE NON-AA >130 60-200 CBC AND DIFF (MANUAL DIFF IF NECESSARY) - 04/30/19 05:15 WBC 1.91 4.00-11.00 Hematocrit 24 36-45 Hemoglobin 7.7 12.0-15.0 MCH 31 27-34 MCHC 32 32-36 MCV 97 80-99 MPV 11.4 9.4-12.3 Platelet Count 52 140-400 RBC 2.46 4.00-5.00 RDW 19.9 11.5-14.5 NUCLEATED RBCS 3 0-0 % NEUTROPHILS 59 45-78 %LYMPHOCYTES 17 15-47 %MONOCYTES 19 0-12 %EOSINOPHILS 2 0-7 %BASOPHILS 0 0-2 # GRANULOCYTES 1.17 1.70-6.80 # LYMPHOCYTES 0.32 1.00-3.30 # MONOCYTES 0.36 0.20-0.90 # EOSINOPHILS 0.04 0.00-0.40 # BASOPHILS 0.00 0.00-0.10 % METAMYELOCYTES 2 0-0 XMATCH - 04/30/19 12:37 COMPREHENSIVE METABOLIC PANEL - 05/01/19 05:29 Alanine Aminotransferase 10 0-34 Albumin 2.2 3.5-5.0 Alkaline Phosphatase 204 42-140 Aspartate Aminotransferase 20 15- 46 Blood Urea Nitrogen 4 7-26 Chloride 98 96-112 Carbon Dioxide 33 20-32 Creatinine 0.4 0.4-1.1 Glucose 81 70-100 Potassium 3.8 3.5-5.3 Sodium 134 133-147 Calcium 8.6 8.4-10.5 Anion Gap 3 TX 5-17 Protein Total Serum 4.3 6.0-8.2 BILIRUBIN TOTAL 0.5 0.2-1.3 GFR FEMALE AA >130 60-200 GFR FEMALE NON-AA >130 60-200 CBC AND DIFF (MANUAL DIFF IF NECESSARY) - 05/01/19 05:29 WBC 3.00 4.00-11.00 Hematocrit 26 36-45 Hemoglobin 8.7 12.0-15.0 MCH 32 27-34 MCHC 34 32-36 MCV 94 80-99 MPV 11.5 9.4-12.3 Platelet Count 44 140-400 RBC 2.75 4.00-5.00 RDW 20.8 11.5-14.5 Polychromasia Present Absent NUCLEATED RBCS 2 0-0 % NEUTROPHILS 70 45-78 %LYMPHOCYTES 7 15-47 %MONOCYTES 18 0-12 %EOSINOPHILS 0 0-7 %BASOPHILS 1 0-2 # GRANULOCYTES 2.22 1.70-6.80 # LYMPHOCYTES 0.21 1.00-3.30 # MONOCYTES 0.54 0.20-0.90 # EOSINOPHILS 0.00 0.00-0.40 # BASOPHILS 0.03 0.00-0.10 % METAMYELOCYTES 2 0-0 TOXIC GRANULATION Present Absent VACUOLATED NEUTROPHILS Present Absent %MYELOCYTES 2 0-0 TEAR DROP CELLS Present Absent COMPREHENSIVE METABOLIC PANEL - 05/02/19 06:15 Alanine Aminotransferase 9 0-34 Albumin 2.2 3.5-5.0 Alkaline Phosphatase 206 42-140 Aspartate Aminotransferase 20 15- 46 Blood Urea Nitrogen 3 7-26 Chloride 98 96-112 Carbon Dioxide 33 20-32 Creatinine 0.4 0.4-1.1 Glucose 75 70-100 Potassium 3.7 3.5-5.3 Sodium 134 133-147 Calcium 8.8 8.4-10.5 Anion Gap 3 TX 5-17 Protein Total Serum 4.3 6.0-8.2 BILIRUBIN TOTAL 0.4 0.2-1.3 GFR FEMALE AA >130 60-200 GFR FEMALE NON-AA >130 60-200 CBC AND DIFF (MANUAL DIFF IF NECESSARY) - 05/02/19 07:44 WBC 4.51 4.00-11.00 Hematocrit 28 36-45 Hemoglobin 9.1 12.0-15.0 MCH 32 27-34 MCHC 33 32-36 MCV 96 80-99 MPV 10.1 9.4-12.3 Platelet Count 42 140-400 RBC 2.89 4.00-5.00 RDW 20.0 11.5-14.5 Ovalocytes Present Absent Polychromasia Present Absent NUCLEATED RBCS 0 0-0 % NEUTROPHILS 67 45-78 %LYMPHOCYTES 10 15-47 %MONOCYTES 16 0-12 %EOSINOPHILS 1 0-7 %BASOPHILS 1 0-2 # GRANULOCYTES 3.25 1.70-6.80 # LYMPHOCYTES 0.45 1.00-3.30 # MONOCYTES 0.72 0.20-0.90 # EOSINOPHILS 0.05 0.00-0.40 # BASOPHILS 0.05 0.00-0.10 % METAMYELOCYTES 3 0-0 LEFT SHIFT Present Absent TOXIC GRANULATION Present Absent VACUOLATED NEUTROPHILS Present Absent %MYELOCYTES 2 0-0 TEAR DROP CELLS Present Absent DOHLE BODIES Present Absent ARTERIAL BLOOD GAS - 05/02/19 09:05 Base Excess 9.7 -3.0-3.0 Device NC NRG Bicarbonate 35.4 19.0-29.0 LPM 6.00 TX NRG Mode Oxygen NRG PCO2 Arterial 51 35-45 PO2 Arterial 66 80-100 SAMPLE SITE Right Brachial NRG PH ARTERIAL 7.45 7.36-7.44 COMPREHENSIVE METABOLIC PANEL - 05/03/19 05:45 Alanine Aminotransferase 10 0-34 Albumin 2.2 3.5-5.0 Alkaline Phosphatase 205 42-140 Aspartate Aminotransferase 19 15- 46 Blood Urea Nitrogen 9 7-26 Chloride 94 96-112 Carbon Dioxide 37 20-32 Creatinine 0.4 0.4-1.1 Glucose 114 70-100 Potassium 3.3 3.5-5.3 Sodium 134 133-147 Calcium 8.6 8.4-10.5 Anion Gap 4 TX 5-17 Protein Total Serum 4.4 6.0-8.2 BILIRUBIN TOTAL 0.3 0.2-1.3 GFR FEMALE AA >130 60-200 GFR FEMALE NON-AA >130 60-200 CBC AND DIFF (MANUAL DIFF IF NECESSARY) - 05/03/19 05:45 WBC 6.45 4.00-11.00 Hematocrit 28 36-45 Hemoglobin 9.1 12.0-15.0 MCH 31 27-34 MCHC 32 32-36 MCV 96 80-99 MPV 11.1 9.4-12.3 Platelet Count 45 140-400 RBC 2.95 4.00-5.00 RDW 19.7 11.5-14.5 Ovalocytes Present Absent Polychromasia Present Absent NUCLEATED RBCS 1 0-0 % NEUTROPHILS 78 45-78 %LYMPHOCYTES 5 15-47 %MONOCYTES 13 0-12 %EOSINOPHILS 0 0-7 %BASOPHILS 0 0-2 # GRANULOCYTES 5.29 1.70-6.80 # LYMPHOCYTES 0.32 1.00-3.30 # MONOCYTES 0.84 0.20-0.90 # EOSINOPHILS 0.00 0.00-0.40 # BASOPHILS 0.01 0.00-0.10 % METAMYELOCYTES 1 0-0 TOXIC GRANULATION Present Absent %MYELOCYTES 3 0-0 DOHLE BODIES Present Absent MAGNESIUM - 05/03/19 05:45 Magnesium 1.7 1.4-2.7 Comprehensive metabolic panel - 05/05/19 15:30 Serum or plasma sodium measurement (moles/volume) 138 mmol/L 135-145 Serum or plasma potassium measurement (moles/volume) 4.2 mmol/L 3.6-5.0 Serum or plasma chloride measurement (moles/volume) 98 mmol/L 98-107 Carbon dioxide 30 mmol/L 21-32 Serum or plasma anion gap determination (moles/volume) 10 mmol/L 5-14 Serum or plasma urea nitrogen measurement (mass/volume ) 12 mg/dL 7-18 Serum or plasma creatinine measurement (mass/volume) 0.47 mg/dL 0.60-1.30 Serum or plasma urea nitrogen/creatinine mass ratio 26 NRG Serum or plasma creatinine measurement w ith calculation of estimated glomerular filtration rate > NRG Serum or plasma glucose measurement (mass/volume) 95 mg/dL 70-105 Serum or plasma calcium measurement (mass/volume) 8.8 mg/dL 8.5-10.1 Serum or plasma total bilirubin measurement (mass/volu me) 0.5 mg/dL 0.1-1.0 Serum or plasma alkaline phosphatase silvina surement (enzymatic activity/volume) 255 U/L 40-136 Serum or plasma aspartate aminotransfera se measurement (enzymatic activity/volume) 26 U/L 5-34 Serum or plasma alanine aminotransferase measurement (enzymatic activity/volume) 10 U/L 0-55 Serum or plasma protein measurement (mass/volume) 5.7 g/dL 6.4-8.2 Serum or plasma albumin measurement (mass/volume) 2.6 g/dL 3.2-4.5 CALCIUM CORRECTED 9.9 mg/dL 8.5-10.1 Fibrin D-dimer FEU measurement in platel et poor plasma (mass/volume) - 05/05/19 15:30 Fibrin D-dimer FEU measurement in platelet poor plasma (mass/volume) 2.49 ug/mL 0.00-0.49 Complete blood count (CBC) with automate d white blood cell (WBC) differential - 05/05/19 15:30 Blood leukocytes automated count (number/volume) 5.6 10*3/uL 4.3-11.0 Blood erythrocytes automated count (number/volume) 2.75 10*6/uL 4.35-5.85 Venous blood hemoglobin measurement (mass/volume) 8.5 g/dL 11.5-16.0 Blood hematocrit (volume fraction) 27 % 35-52 Automated erythrocyte mean corpuscular volume 98 [ foz_us] 80-99 Automated erythrocyte mean corpuscular h emoglobin (mass per erythrocyte) 31 pg 25-34 Automated erythrocyte mean corpuscular h emoglobin concentration measurement (mass/volume) 31 g/dL 32-36 Automated erythrocyte distribution width ratio 18. 8 % 10.0- 14.5 Automated blood platelet count (count/volume) 54 1 0*3/uL 130-400 Automated blood platelet mean volume measurement 10.8 [foz_us] 7.4-10.4 Automated blood neutrophils/100 leukocytes 54 % 42-75 Automated blood lymphocytes/100 leukocytes 11 % 12-44 Blood monocytes/100 leukocytes 19 % 0-12 Automated blood eosinophils/100 leukocytes 1 % 0-10 Automated blood basophils/100 leukocytes 1 % 0-10 Blood neutrophils automated count (number/volume) 3.0 10*3 1.8-7.8 Blood lymphocytes automated count (number/volume) 0.6 10*3 1.0-4.0 Blood monocytes automated count (number/volume) 1. 1 10*3 0.0-1.0 Automated eosinophil count 0.1 10*3/uL 0 .0-0.3 Automated blood basophil count (count/volume) 0.1 10*3/uL 0.0-0.1 Manual absolute plasma cell count - 04/24 01/12 15:30 Blood monocytes/100 leukocytes 19 % NRG Manual blood segmented neutrophils/100 leukocytes 33 % NRG Blood band neutrophils/100 leukocytes 23 % NRG Manual blood lymphocytes/100 leukocytes 20 % NRG Manual blood metamyelocytes/100 leukocytes 3 % NRG Blood hypochromia detection by light microscopy 2+ NRG Blood microcytes detection by light microscopy 1+ NRG Manual blood myelocytes/100 leukocytes 2 % NRG CBC AND DIFF (MANUAL DIFF IF NECESSARY) - 05/11/19 13:12 WBC 2.1 4.0-11.0 Hematocrit 28 36-45 Hemoglobin 9.0 12.0-15.0 MCH 31 27-34 MCHC 32 32-36 MCV 97 80-99 MPV 9.1 9.4-12.3 Platelet Count 67 140-400 RBC 2.87 4.00-5.00 RDW 17.4 11.5-14.5 % NEUTROPHILS 65 45-78 %LYMPHOCYTES 20 15-47 %MONOCYTES 16 0-12 # GRANULOCYTES 1.4 1.7-6.8 # LYMPHOCYTES 0.4 1.0-3.3 # MONOCYTES 0.3 0.2-0.9 COMPREHENSIVE METABOLIC PANEL - 05/11/19 13:12 Alanine Aminotransferase 21 0-34 Albumin 2.7 3.5-5.0 Alkaline Phosphatase 315 42-140 Aspartate Aminotransferase 53 15- 46 Blood Urea Nitrogen 14 7-26 Chloride 99 96-112 Carbon Dioxide 33 20-32 Creatinine 0.4 0.4-1.1 Glucose 83 70-100 Potassium 4.4 3.5-5.3 Sodium 136 133-147 Calcium 8.9 8.4-10.5 Anion Gap 5 TX 5-17 Protein Total Serum 5.1 6.0-8.2 BILIRUBIN TOTAL 0.4 0.2-1.3 GFR FEMALE AA >130 60-200 GFR FEMALE NON-AA >130 60-200 CA 15.3 - 05/11/19 13:12 CA 15.3 116.1 0.0-31.3 CBC AND DIFF (MANUAL DIFF IF NECESSARY) - 06/08/19 11:40 WBC 2.2 4.0-11.0 Hematocrit 26 36-45 Hemoglobin 8.5 12.0-15.0 MCH 32 27-34 MCHC 32 32-36 MCV 100 80-99 MPV 8.1 9.4-12.3 Platelet Count 91 140-400 RBC 2.62 4.00-5.00 RDW 20.2 11.5-14.5 % NEUTROPHILS 56 45-78 %LYMPHOCYTES 21 15-47 %MONOCYTES 23 0-12 # GRANULOCYTES 1.2 1.7-6.8 # LYMPHOCYTES 0.5 1.0-3.3 # MONOCYTES 0.5 0.2-0.9 MAGNESIUM - 06/08/19 11:40 Magnesium 2.2 1.4-2.7 PHOSPHORUS - 06/08/19 11:40 Phosphorus 2.7 2.5-4.5 COMPREHENSIVE METABOLIC PANEL - 06/08/19 11:40 Alanine Aminotransferase 11 0-34 Albumin 2.8 3.5-5.0 Alkaline Phosphatase 210 42-140 Aspartate Aminotransferase 29 15- 46 Blood Urea Nitrogen 8 7-26 Chloride 103 96-112 Carbon Dioxide 30 20-32 Creatinine 0.5 0.4-1.1 Glucose 92 70-100 Potassium 4.2 3.5-5.3 Sodium 136 133-147 Calcium 8.1 8.4-10.5 Anion Gap 3 TX 5-17 Protein Total Serum 5.3 6.0-8.2 BILIRUBIN TOTAL 0.4 0.2-1.3 GFR FEMALE AA >130 60-200 GFR FEMALE NON-AA >130 60-200 PHOSPHORUS - 07/06/19 12:00 Phosphorus 2.4 2.5-4.5 COMPREHENSIVE METABOLIC PANEL - 07/06/19 12:00 Alanine Aminotransferase 10 0-34 Albumin 2.6 3.5-5.0 Alkaline Phosphatase 175 42-140 Aspartate Aminotransferase 34 15- 46 Blood Urea Nitrogen 12 7-26 Chloride 106 96-112 Carbon Dioxide 29 20-32 Creatinine 0.4 0.4-1.1 Glucose 99 70-100 Potassium 3.9 3.5-5.3 Sodium 138 133-147 Calcium 7.9 8.4-10.5 Anion Gap 3 TX 5-17 Protein Total Serum 5.1 6.0-8.2 BILIRUBIN TOTAL 0.6 0.2-1.3 GFR FEMALE AA >130 60-200 GFR FEMALE NON-AA >130 60-200 MAGNESIUM - 07/06/19 12:00 Magnesium 2.1 1.4-2.7 CBC AND DIFF (MANUAL DIFF IF NECESSARY) - 07/06/19 12:00 WBC 2.00 4.00-11.00 Hematocrit 25 36-45 Hemoglobin 8.0 12.0-15.0 MCH 34 27-34 MCHC 33 32-36 MCV 104 80-99 MPV 11.5 9.4-12.3 Platelet Count 73 140-400 RBC 2.35 4.00-5.00 RDW 19.0 11.5-14.5 NUCLEATED RBCS 1 0-0 % NEUTROPHILS 55 45-78 %LYMPHOCYTES 21 15-47 %MONOCYTES 18 0-12 %EOSINOPHILS 3 0-7 %BASOPHILS 1 0-2 % IMM GRANS 4 0-1 # GRANULOCYTES 1.18 1.70-6.80 # LYMPHOCYTES 0.41 1.00-3.30 # MONOCYTES 0.35 0.20-0.90 # EOSINOPHILS 0.05 0.00-0.40 # BASOPHILS 0.01 0.00-0.10 ANTIBODY SCREEN - 07/06/19 12:00 Antibody Screen Negative Negative ABORH TYPE - 07/06/19 12:00 ABORH Type AB Positive NRG XMATCH - 07/06/19 15:50 CBC AND DIFF (MANUAL DIFF IF NECESSARY) - 08/10/19 12:13 WBC 2.7 4.0-11.0 Hematocrit 24 36-45 Hemoglobin 7.9 12.0-15.0 MCH 34 27-34 MCHC 32 32-36 MCV 103 80-99 MPV 10.0 9.4-12.3 Platelet Count 62 140-400 RBC 2.36 4.00-5.00 RDW 18.5 11.5-14.5 % NEUTROPHILS 61 45-78 %LYMPHOCYTES 15 15-47 %MONOCYTES 25 0-12 # GRANULOCYTES 1.6 1.7-6.8 # LYMPHOCYTES 0.4 1.0-3.3 # MONOCYTES 0.7 0.2-0.9 MAGNESIUM - 08/10/19 12:13 Magnesium 1.8 1.4-2.7 COMPREHENSIVE METABOLIC PANEL - 08/10/19 12:13 Alanine Aminotransferase 8 0-34 Albumin 2.9 3.5-5.0 Alkaline Phosphatase 133 42-140 Aspartate Aminotransferase 71 15- 46 Blood Urea Nitrogen 13 7-26 Chloride 100 96-112 Carbon Dioxide 31 20-32 Creatinine 0.5 0.4-1.1 Glucose 86 70-100 Potassium 3.9 3.5-5.3 Sodium 136 133-147 Calcium 7.7 8.4-10.5 Anion Gap 5 TX 5-17 Protein Total Serum 5.5 6.0-8.2 BILIRUBIN TOTAL 0.5 0.2-1.3 GFR FEMALE AA >130 60-200 GFR FEMALE NON-AA >130 60-200 PHOSPHORUS - 08/10/19 12:13 Phosphorus 3.2 2.5-4.5 CA 15.3 - 08/10/19 12:13 CA 15.3 199.0 0.0-31.3 CBC AND DIFF (MANUAL DIFF IF NECESSARY) - 08/12/19 11:32 WBC 8.7 4.0-11.0 Hematocrit 23 36-45 Hemoglobin 7.4 12.0-15.0 MCH 34 27-34 MCHC 32 32-36 MCV 104 80-99 MPV 8.9 9.4-12.3 Platelet Count 61 140-400 RBC 2.20 4.00-5.00 RDW 18.6 11.5-14.5 % NEUTROPHILS 88 45-78 %LYMPHOCYTES 5 15-47 %MONOCYTES 7 0-12 # GRANULOCYTES 7.7 1.7-6.8 # LYMPHOCYTES 0.4 1.0-3.3 # MONOCYTES 0.6 0.2-0.9 COMPREHENSIVE METABOLIC PANEL - 08/12/19 11:32 Alanine Aminotransferase 12 0-34 Albumin 3.1 3.5-5.0 Alkaline Phosphatase 109 42-140 Aspartate Aminotransferase 44 15- 46 Blood Urea Nitrogen 19 7-26 Chloride 101 96-112 Carbon Dioxide 29 20-32 Creatinine 0.5 0.4-1.1 Glucose 101 70-100 Potassium 2.8 3.5-5.3 Sodium 138 133-147 Calcium 7.6 8.4-10.5 Anion Gap 9 TX 5-17 Protein Total Serum 5.9 6.0-8.2 BILIRUBIN TOTAL 0.4 0.2-1.3 GFR FEMALE AA >130 60-200 GFR FEMALE NON-AA >130 60-200 CBC AND DIFF (MANUAL DIFF IF NECESSARY) - 09/07/19 11:15 WBC 1.5 4.0-11.0 Hematocrit 22 36-45 Hemoglobin 7.1 12.0-15.0 MCH 34 27-34 MCHC 32 32-36 MCV 106 80-99 MPV 8.4 9.4-12.3 Platelet Count 45 140-400 RBC 2.11 4.00-5.00 RDW 18.0 11.5-14.5 % NEUTROPHILS 47 45-78 %LYMPHOCYTES 22 15-47 %MONOCYTES 32 0-12 # GRANULOCYTES 0.7 1.7-6.8 # LYMPHOCYTES 0.3 1.0-3.3 # MONOCYTES 0.5 0.2-0.9 COMPREHENSIVE METABOLIC PANEL - 09/07/19 11:15 Alanine Aminotransferase 11 0-34 Albumin 2.9 3.5-5.0 Alkaline Phosphatase 126 42-140 Aspartate Aminotransferase 43 15- 46 Blood Urea Nitrogen 11 7-26 Chloride 101 96-112 Carbon Dioxide 29 20-32 Creatinine 0.5 0.4-1.1 Glucose 111 70-100 Potassium 4.3 3.5-5.3 Sodium 136 133-147 Calcium 8.8 8.4-10.5 Anion Gap 7 TX 5-17 Protein Total Serum 5.5 6.0-8.2 BILIRUBIN TOTAL 0.5 0.2-1.3 GFR FEMALE AA >130 60-200 GFR FEMALE NON-AA >130 60-200 ABORH TYPE - 09/07/19 11:15 ABORH Type AB Positive NRG ANTIBODY SCREEN - 09/07/19 11:15 Antibody Screen Negative Negative CA 15.3 - 09/07/19 11:15 CA 15.3 165.7 0.0-31.3 XMATCH - 09/07/19 11:55 CBC AND DIFF (MANUAL DIFF IF NECESSARY) - 09/15/19 13:04 WBC 2.3 4.0-11.0 Hematocrit 26 36-45 Hemoglobin 8.3 12.0-15.0 MCH 33 27-34 MCHC 32 32-36 MCV 104 80-99 MPV 9.2 9.4-12.3 Platelet Count 51 140-400 RBC 2.49 4.00-5.00 RDW 16.5 11.5-14.5 % NEUTROPHILS 68 45-78 %LYMPHOCYTES 13 15-47 %MONOCYTES 19 0-12 # GRANULOCYTES 1.6 1.7-6.8 # LYMPHOCYTES 0.3 1.0-3.3 # MONOCYTES 0.4 0.2-0.9 COMPREHENSIVE METABOLIC PANEL - 09/15/19 13:04 Alanine Aminotransferase 12 0-34 Albumin 2.8 3.5-5.0 Alkaline Phosphatase 138 42-140 Aspartate Aminotransferase 50 15- 46 Blood Urea Nitrogen 11 7-26 Chloride 102 96-112 Carbon Dioxide 29 20-32 Creatinine 0.4 0.4-1.1 Glucose 91 70-100 Potassium 4.5 3.5-5.3 Sodium 136 133-147 Calcium 8.8 8.4-10.5 Anion Gap 5 TX 5-17 Protein Total Serum 5.4 6.0-8.2 BILIRUBIN TOTAL 0.5 0.2-1.3 GFR FEMALE AA >130 60-200 GFR FEMALE NON-AA >130 60-200 PHOSPHORUS - 09/15/19 13:04 Phosphorus 4.1 2.5-4.5 MAGNESIUM - 09/15/19 13:04 Magnesium 2.0 1.4-2.7 CBC AND DIFF (MANUAL DIFF IF NECESSARY) - 10/11/19 15:33 WBC 2.3 4.0-11.0 Hematocrit 26 36-45 Hemoglobin 8.7 12.0-15.0 MCH 35 27-34 MCHC 33 32-36 MCV 105 80-99 MPV 8.0 9.4-12.3 Platelet Count 50 140-400 RBC 2.51 4.00-5.00 RDW 16.7 11.5-14.5 % NEUTROPHILS 54 45-78 %LYMPHOCYTES 28 15-47 %MONOCYTES 18 0-12 # GRANULOCYTES 1.3 1.7-6.8 # LYMPHOCYTES 0.6 1.0-3.3 # MONOCYTES 0.4 0.2-0.9 PHOSPHORUS - 10/11/19 15:33 Phosphorus 3.5 2.5-4.5 MAGNESIUM - 10/11/19 15:33 Magnesium 2.3 1.4-2.7 COMPREHENSIVE METABOLIC PANEL - 10/11/19 15:33 Alanine Aminotransferase 13 0-34 Albumin 3.4 3.5-5.0 Alkaline Phosphatase 137 42-140 Aspartate Aminotransferase 46 15- 46 Blood Urea Nitrogen 17 7-26 Chloride 104 96-112 Carbon Dioxide 26 20-32 Creatinine 0.5 0.4-1.1 Glucose 91 70-100 Potassium 4.5 3.5-5.3 Sodium 135 133-147 Calcium 9.1 8.4-10.5 Anion Gap 4 TX 5-17 Protein Total Serum 6.6 6.0-8.2 BILIRUBIN TOTAL 0.6 0.2-1.3 GFR FEMALE AA >130 60-200 GFR FEMALE NON-AA >130 60-200 CA 15.3 - 10/11/19 15:33 CA 15.3 232.0 0.0-31.3 CULTURE, BLOOD - 10/25/19 19:21 Culture result No Growth at 5 days NRG LACTATE VENOUS WB - 10/25/19 19:41 LACTATE VENOUS 0.9 0.0-2.0 COMPREHENSIVE METABOLIC PANEL - 10/25/19 19:41 Alanine Aminotransferase 11 0-34 Albumin 3.2 3.5-5.0 Alkaline Phosphatase 217 42-140 Aspartate Aminotransferase 54 15- 46 Blood Urea Nitrogen 13 7-26 Chloride 101 96-112 Carbon Dioxide 27 20-32 Creatinine 0.5 0.4-1.1 Glucose 103 70-100 Potassium 3.9 3.5-5.3 Sodium 134 133-147 Calcium 8.5 8.4-10.5 Anion Gap 5 TX 5-17 Protein Total Serum 6.4 6.0-8.2 BILIRUBIN TOTAL 1.0 0.2-1.3 GFR FEMALE AA >130 60-200 GFR FEMALE NON-AA >130 60-200 CBC AND DIFF (MANUAL DIFF IF NECESSARY) - 10/25/19 19:41 WBC 4.49 4.00-11.00 Hematocrit 22 36-45 Hemoglobin 7.5 12.0-15.0 MCH 35 27-34 MCHC 34 32-36 MCV 104 80-99 MPV 10.1 9.4-12.3 Platelet Count 52 140-400 RBC 2.14 4.00-5.00 RDW 14.8 11.5-14.5 NUCLEATED RBCS 0 0-0 % NEUTROPHILS 77 45-78 %LYMPHOCYTES 7 15-47 %MONOCYTES 14 0-12 %EOSINOPHILS 1 0-7 %BASOPHILS 0 0-2 % IMM GRANS 1 0-1 # GRANULOCYTES 3.52 1.70-6.80 # LYMPHOCYTES 0.29 1.00-3.30 # MONOCYTES 0.64 0.20-0.90 # EOSINOPHILS 0.03 0.00-0.40 # BASOPHILS 0.01 0.00-0.10 CULTURE, BLOOD - 10/25/19 19:49 Culture result No Growth at 5 days NRG RESPIRATORY PANEL BY PCR - 10/25/19 20:1 3 Source NASOPHAR NRG Adenovirus Not Detected Not Detected Bordetella pertussis Not Detected Not D etected Chlamydophila pneumoniae Not Detected N ot Detected Human Metapneumovirus (hMPV) Not Detected Not Detected Human Rhinovirus Enterovirus Not Detected Not Detected Mycoplasma pneumoniae Not Detected Not Detected INFLUENZA A Not Detected Not Detected INFLUENZA B Not Detected Not Detected RESPIRATORY SYNCYTIAL VIRUS PL Not Detected Not Detected CORONAVIRUS 229E Not Detected Not Detec carey CORONAVIRUS HKU1 Not Detected Not Detec carey CORONAVIRUS NL63 Not Detected Not Detec carey CORONAVIRUS OC43 Not Detected Not Detec carey PARAINFLUENZA VIRUS (PIV) 1 Not Detected Not Detected PARAINFLUENZA VIRUS (PIV) 2 Not Detected Not Detected PARAINFLUENZA VIRUS (PIV) 3 Not Detected Not Detected PARAINFLUENZA VIRUS (PIV) 4 Not Detected Not Detected URINALYSIS REFLEX - 10/25/19 20:29 APPEARANCE, URINE Dark Yellow NRG GLUCOSE URINE Negative Negative BILIRUBIN URINE Small Negative KETONES URINE Small Negative SPECIFIC GRAVITY UA 1.025 TX 1.001-1.03 0 HEMOGLOBIN URINE Negative Negative PH URINE 7.5 TX 5.0-8.0 PROTEIN URINE QUAL 30 Negative UROBILINOGEN URINE 4.0 Negative NITRITE URINE Negative Negative LEUKOCYTE ESTERASE Negative Negative PROCALCITONIN - 10/25/19 22:31 Procalcitonin 0.20 0.00-0.10 CBC AND DIFF (MANUAL DIFF IF NECESSARY) - 10/26/19 04:24 WBC 3.67 4.00-11.00 Hematocrit 22 36-45 Hemoglobin 6.9 12.0-15.0 MCH 34 27-34 MCHC 32 32-36 MCV 106 80-99 MPV 10.3 9.4-12.3 Platelet Count 52 140-400 RBC 2.03 4.00-5.00 RDW 14.8 11.5-14.5 NUCLEATED RBCS 0 0-0 % NEUTROPHILS 73 45-78 %LYMPHOCYTES 11 15-47 %MONOCYTES 14 0-12 %EOSINOPHILS 1 0-7 %BASOPHILS 0 0-2 % IMM GRANS 1 0-1 # GRANULOCYTES 2.71 1.70-6.80 # LYMPHOCYTES 0.41 1.00-3.30 # MONOCYTES 0.52 0.20-0.90 # EOSINOPHILS 0.02 0.00-0.40 # BASOPHILS 0.01 0.00-0.10 MAGNESIUM - 10/26/19 04:24 Magnesium 2.1 1.4-2.7 BASIC METABOLIC PANEL - 10/26/19 04:24 Blood Urea Nitrogen 12 7-26 Chloride 101 96-112 Carbon Dioxide 27 20-32 Creatinine 0.5 0.4-1.1 Glucose 98 70-100 Potassium 3.8 3.5-5.3 Sodium 132 133-147 Calcium 8.2 8.4-10.5 Anion Gap 5 TX 5-17 GFR FEMALE AA >130 60-200 GFR FEMALE NON-AA >130 60-200 ANTIBODY SCREEN - 10/26/19 04:24 Antibody Screen Negative Negative ABORH TYPE - 10/26/19 04:24 ABORH Type AB Positive NRG IRON/TRANSFERRIN - 10/26/19 04:24 Iron 39 50-180 Total Iron-Binding Capacity 142 20 4-408 Transferrin 118 206-381 IRON/TRANSFERRIN % SATURATION 28 15-50 B12/FOLATE - 10/26/19 04:24 Vitamin B12 806 239-931 Folate 5.0 3.4-20.0 FERRITIN - 10/26/19 04:24 Ferritin 1140 20-200 HEMOGLOBIN AND HEMATOCRIT - 10/26/19 09: 05 Hematocrit 21 36-45 Hemoglobin 6.8 12.0-15.0 XMATCH - 10/26/19 09:49 GLUCOSE POC - 10/26/19 13:15 GLUCOSE POC 125 70-100 HEMOGLOBIN AND HEMATOCRIT - 10/26/19 17: 07 Hematocrit 24 36-45 Hemoglobin 7.6 12.0-15.0 LEGIONELLA URINE ANTIGEN - 10/26/19 20:2 4 LEGIONELLA URINE ANTIGEN Negative Negat irwin STREP PNEUMONIAE URINE ANTIGEN - 9 20:24 STREPTOCOCCUS PNEUMONIAE URINE ANTIGEN Negative Negative COMPLETE BLOOD COUNT - 10/27/19 03:37 WBC 2.72 4.00-11.00 Hematocrit 23 36-45 Hemoglobin 7.3 12.0-15.0 MCH 32 27-34 MCHC 32 32-36 MCV 101 80-99 MPV 11.4 9.4-12.3 Platelet Count 51 140-400 RBC 2.25 4.00-5.00 RDW 19.3 11.5-14.5 NUCLEATED RBCS 0 0-0 PROCALCITONIN - 10/27/19 03:37 Procalcitonin 0.27 0.00-0.10 COMPLETE BLOOD COUNT - 10/28/19 04:15 WBC 2.76 4.00-11.00 Hematocrit 23 36-45 Hemoglobin 7.5 12.0-15.0 MCH 32 27-34 MCHC 33 32-36 MCV 98 80-99 MPV 10.9 9.4-12.3 Platelet Count 51 140-400 RBC 2.36 4.00-5.00 RDW 18.4 11.5-14.5 NUCLEATED RBCS 0 0-0 RENAL PANEL - 10/28/19 04:15 Albumin 2.5 3.5-5.0 Blood Urea Nitrogen 10 7-26 Chloride 97 96-112 Carbon Dioxide 35 20-32 Creatinine 0.6 0.4-1.1 Glucose 120 70-100 Potassium 3.7 3.5-5.3 Sodium 133 133-147 Calcium 8.9 8.4-10.5 Anion Gap 2 TX 5-17 Phosphorus 4.1 2.5-4.5 GFR FEMALE AA 127 60-200 GFR FEMALE NON-AA 106 60-200 Comprehensive metabolic panel - 11/08/19 12:00 Serum or plasma sodium measurement (moles/volume) 138 mmol/L 135-145 Serum or plasma potassium measurement (moles/volume) 4.0 mmol/L 3.6-5.0 Serum or plasma chloride measurement (moles/volume) 100 mmol/L 98-107 Carbon dioxide 26 mmol/L 21-32 Serum or plasma anion gap determination (moles/volume) 12 mmol/L 5-14 Serum or plasma urea nitrogen measurement (mass/volume ) 15 mg/dL 7-18 Serum or plasma creatinine measurement (mass/volume) 0.49 mg/dL 0.60-1.30 Serum or plasma urea nitrogen/creatinine mass ratio 31 NRG Serum or plasma creatinine measurement w ith calculation of estimated glomerular filtration rate > NRG Serum or plasma glucose measurement (mass/volume) 88 mg/dL 70-105 Serum or plasma calcium measurement (mass/volume) 9.6 mg/dL 8.5-10.1 Serum or plasma total bilirubin measurement (mass/volu me) 0.6 mg/dL 0.1-1.0 Serum or plasma alkaline phosphatase silvina surement (enzymatic activity/volume) 373 U/L 40-136 Serum or plasma aspartate aminotransfera se measurement (enzymatic activity/volume) 53 U/L 5-34 Serum or plasma alanine aminotransferase measurement (enzymatic activity/volume) 16 U/L 0-55 Serum or plasma protein measurement (mass/volume) 6.6 g/dL 6.4-8.2 Serum or plasma albumin measurement (mass/volume) 2.9 g/dL 3.2-4.5 CALCIUM CORRECTED 10.5 mg/dL 8.5-10.1 Blood CBC with ordered manual differenti al panel - 11/08/19 12:00 Blood leukocytes automated count (number/volume) 2.0 10*3/uL 4.3-11.0 Blood erythrocytes automated count (number/volume) 2.80 10*6/uL 4.35-5.85 Venous blood hemoglobin measurement (mass/volume) 9.0 g/dL 11.5-16.0 Blood hematocrit (volume fraction) 29 % 35-52 Automated erythrocyte mean corpuscular volume 104 [foz_us] 80-99 Automated erythrocyte mean corpuscular h emoglobin (mass per erythrocyte) 32 pg 25-34 Automated erythrocyte mean corpuscular h emoglobin concentration measurement (mass/volume) 31 g/dL 32-36 Automated erythrocyte distribution width ratio 15. 9 % 10.0- 14.5 Automated blood platelet count (count/volume) 69 1 0*3/uL 130-400 Automated blood platelet mean volume measurement 9.6 [foz_us] 7.4-10.4 Automated blood neutrophils/100 leukocytes 69 % 42-75 Automated blood lymphocytes/100 leukocytes 15 % 12-44 Blood monocytes/100 leukocytes 10 % NRG Automated blood eosinophils/100 leukocytes 2 % 0-10 Automated blood basophils/100 leukocytes 1 % 0-10 Blood neutrophils automated count (number/volume) 1.4 10*3 1.8-7.8 Blood lymphocytes automated count (number/volume) 0.3 10*3 1.0-4.0 Blood monocytes automated count (number/volume) 0. 2 10*3 0.0-1.0 Automated eosinophil count 0.0 10*3/uL 0 .0-0.3 Automated blood basophil count (count/volume) 0.0 10*3/uL 0.0-0.1 Manual blood segmented neutrophils/100 leukocytes 70 % NRG Blood band neutrophils/100 leukocytes 4 % NRG Manual blood lymphocytes/100 leukocytes 14 % NRG Manual eosinophils/100 leukocytes in nose 2 % NRG Manual blood basophils/100 leukocytes 0 % NRG Blood anisocytosis detection by light microscopy S LIGHT NRG CA 15-3 - 11/08/19 12:00 CA 15-3 C 304.6 u[iU]/mL 0.0-31.3 CBC AND DIFF (MANUAL DIFF IF NECESSARY) - 11/10/19 15:30 WBC 2.7 4.0-11.0 Hematocrit 26 36-45 Hemoglobin 8.3 12.0-15.0 MCH 32 27-34 MCHC 32 32-36 MCV 100 80-99 MPV 7.7 9.4-12.3 Platelet Count 66 140-400 RBC 2.56 4.00-5.00 RDW 14.5 11.5-14.5 % NEUTROPHILS 69 45-78 %LYMPHOCYTES 20 15-47 %MONOCYTES 12 0-12 # GRANULOCYTES 1.9 1.7-6.8 # LYMPHOCYTES 0.5 1.0-3.3 # MONOCYTES 0.3 0.2-0.9 COMPREHENSIVE METABOLIC PANEL - 11/10/19 15:30 Alanine Aminotransferase 16 0-34 Albumin 3.4 3.5-5.0 Alkaline Phosphatase 347 42-140 Aspartate Aminotransferase 60 15- 46 Blood Urea Nitrogen 14 7-26 Chloride 99 96-112 Carbon Dioxide 31 20-32 Creatinine 0.5 0.4-1.1 Glucose 92 70-100 Potassium 4.3 3.5-5.3 Sodium 135 133-147 Calcium 9.2 8.4-10.5 Anion Gap 5 TX 5-17 Protein Total Serum 7.2 6.0-8.2 BILIRUBIN TOTAL 0.9 0.2-1.3 GFR FEMALE AA >130 60-200 GFR FEMALE NON-AA >130 60-200 PHOSPHORUS - 11/10/19 15:30 Phosphorus 4.0 2.5-4.5 MAGNESIUM - 11/10/19 15:30 Magnesium 2.0 1.4-2.7 CA 15.3 - 11/10/19 15:30 CA 15.3 312.5 0.0-31.3 CBC AND DIFF (MANUAL DIFF IF NECESSARY) - 11/23/19 09:08 WBC 3.0 4.0-11.0 Hematocrit 29 36-45 Hemoglobin 9.2 12.0-15.0 MCH 32 27-34 MCHC 32 32-36 MCV 99 80-99 MPV 8.2 9.4-12.3 Platelet Count 75 140-400 RBC 2.88 4.00-5.00 RDW 15.5 11.5-14.5 % NEUTROPHILS 50 45-78 %LYMPHOCYTES 39 15-47 %MONOCYTES 11 0-12 # GRANULOCYTES 1.5 1.7-6.8 # LYMPHOCYTES 1.2 1.0-3.3 # MONOCYTES 0.3 0.2-0.9 COMPREHENSIVE METABOLIC PANEL - 11/23/19 09:08 Alanine Aminotransferase 17 0-34 Albumin 3.4 3.5-5.0 Alkaline Phosphatase 230 42-140 Aspartate Aminotransferase 55 15- 46 Blood Urea Nitrogen 22 7-26 Chloride 102 96-112 Carbon Dioxide 28 20-32 Creatinine 0.7 0.4-1.1 Glucose 110 70-100 Potassium 4.3 3.5-5.3 Sodium 138 133-147 Calcium 9.3 8.4-10.5 Anion Gap 8 TX 5-17 Protein Total Serum 6.4 6.0-8.2 BILIRUBIN TOTAL 0.5 0.2-1.3 GFR FEMALE AA 106 60-200 GFR FEMALE NON-AA 89 60-200 CBC AND DIFF (MANUAL DIFF IF NECESSARY) - 12/07/19 14:35 WBC 2.7 4.0-11.0 Hematocrit 28 36-45 Hemoglobin 9.2 12.0-15.0 MCH 33 27-34 MCHC 33 32-36 MCV 99 80-99 MPV 7.3 9.4-12.3 Platelet Count 39 140-400 RBC 2.81 4.00-5.00 RDW 16.3 11.5-14.5 % NEUTROPHILS 57 45-78 %LYMPHOCYTES 33 15-47 %MONOCYTES 10 0-12 # GRANULOCYTES 1.5 1.7-6.8 # LYMPHOCYTES 0.9 1.0-3.3 # MONOCYTES 0.3 0.2-0.9 COMPREHENSIVE METABOLIC PANEL - 12/07/19 14:35 Alanine Aminotransferase 16 0-34 Albumin 3.5 3.5-5.0 Alkaline Phosphatase 221 42-140 Aspartate Aminotransferase 35 15- 46 Blood Urea Nitrogen 10 7-26 Chloride 103 96-112 Carbon Dioxide 29 20-32 Creatinine 0.6 0.4-1.1 Glucose 151 70-100 Potassium 3.7 3.5-5.3 Sodium 137 133-147 Calcium 8.8 8.4-10.5 Anion Gap 6 TX 5-17 Protein Total Serum 6.7 6.0-8.2 BILIRUBIN TOTAL 0.4 0.2-1.3 GFR FEMALE AA 127 60-200 GFR FEMALE NON-AA 106 60-200 CBC AND DIFF (MANUAL DIFF IF NECESSARY) - 01/06/20 13:28 WBC 4.6 4.0-11.0 Hematocrit 26 36-45 Hemoglobin 8.2 12.0-15.0 MCH 31 27-34 MCHC 31 32-36 MCV 100 80-99 Platelet Count 40 140-400 RBC 2.63 4.00-5.00 RDW 15.9 11.5-14.5 % NEUTROPHILS 51 45-78 %LYMPHOCYTES 39 15-47 %MONOCYTES 10 0-12 # GRANULOCYTES 2.3 1.7-6.8 # LYMPHOCYTES 1.8 1.0-3.3 # MONOCYTES 0.5 0.2-0.9 COMPREHENSIVE METABOLIC PANEL - 01/06/20 13:28 Alanine Aminotransferase 16 0-34 Albumin 3.5 3.5-5.0 Alkaline Phosphatase 217 42-140 Aspartate Aminotransferase 34 15- 46 Blood Urea Nitrogen 10 7-26 Chloride 102 96-112 Carbon Dioxide 30 20-32 Creatinine 0.6 0.4-1.1 Glucose 125 70-100 Potassium 4.3 3.5-5.3 Sodium 137 133-147 Calcium 9.2 8.4-10.5 Anion Gap 4 TX 5-17 Protein Total Serum 6.7 6.0-8.2 BILIRUBIN TOTAL 0.5 0.2-1.3 GFR FEMALE AA 127 60-200 GFR FEMALE NON-AA 106 60-200 CA 15.3 - 01/06/20 13:28 CA 15.3 107.3 0.0-31.3 CBC AND DIFF (MANUAL DIFF IF NECESSARY) - 02/03/20 15:25 WBC 3.9 4.0-11.0 Hematocrit 28 36-45 Hemoglobin 8.9 12.0-15.0 MCH 32 27-34 MCHC 32 32-36 MCV 102 80-99 MPV 8.3 9.4-12.3 Platelet Count 44 140-400 RBC 2.76 4.00-5.00 RDW 16.9 11.5-14.5 % NEUTROPHILS 56 45-78 %LYMPHOCYTES 30 15-47 %MONOCYTES 14 0-12 # GRANULOCYTES 2.2 1.7-6.8 # LYMPHOCYTES 1.2 1.0-3.3 # MONOCYTES 0.5 0.2-0.9 COMPREHENSIVE METABOLIC PANEL - 02/03/20 15:25 Alanine Aminotransferase 24 0-34 Albumin 3.7 3.5-5.0 Alkaline Phosphatase 174 42-140 Aspartate Aminotransferase 55 15- 46 Blood Urea Nitrogen 14 7-26 Chloride 101 96-112 Carbon Dioxide 28 20-32 Creatinine 0.7 0.4-1.1 Glucose 106 70-100 Potassium 3.8 3.5-5.3 Sodium 135 133-147 Calcium 9.2 8.4-10.5 Anion Gap 6 TX 5-17 Protein Total Serum 6.7 6.0-8.2 BILIRUBIN TOTAL 0.4 0.2-1.3 GFR FEMALE AA 106 60-200 GFR FEMALE NON-AA 89 60-200 CA 15.3 - 02/03/20 15:25 CA 15.3 80.1 0.0-31.3 HEMOGLOBIN A1C - 02/03/20 15:25 Hemoglobin A1C 5.1 4.0-5.6 CBC AND DIFF (MANUAL DIFF IF NECESSARY) - 03/02/20 10:41 WBC 5.1 4.0-11.0 Hematocrit 27 36-45 Hemoglobin 8.8 12.0-15.0 MCH 33 27-34 MCHC 33 32-36 MCV 100 80-99 MPV 7.9 9.4-12.3 Platelet Count 62 140-400 RBC 2.69 4.00-5.00 RDW 15.8 11.5-14.5 % NEUTROPHILS 59 45-78 %LYMPHOCYTES 25 15-47 %MONOCYTES 16 0-12 # GRANULOCYTES 3.0 1.7-6.8 # LYMPHOCYTES 1.3 1.0-3.3 # MONOCYTES 0.8 0.2-0.9 COMPREHENSIVE METABOLIC PANEL - 03/02/20 10:41 Alanine Aminotransferase 28 0-34 Albumin 3.8 3.5-5.0 Alkaline Phosphatase 150 42-140 Aspartate Aminotransferase 53 15- 46 Blood Urea Nitrogen 15 7-26 Chloride 104 96-112 Carbon Dioxide 28 20-32 Creatinine 0.8 0.4-1.1 Glucose 117 70-100 Potassium 4.1 3.5-5.3 Sodium 139 133-147 Calcium 10.1 8.4-10.5 Anion Gap 7 TX 5-17 Protein Total Serum 6.8 6.0-8.2 BILIRUBIN TOTAL 0.5 0.2-1.3 GFR FEMALE AA 91 60-200 GFR FEMALE NON-AA 76 60-200 MAGNESIUM - 03/02/20 10:41 Magnesium 2.0 1.4-2.7 PHOSPHORUS - 03/02/20 10:41 Phosphorus 4.2 2.5-4.5 Complete blood count (CBC) with automate d white blood cell (WBC) differential - 03/14/20 03:24 Blood leukocytes automated count (number/volume) 1.5 10*3/uL 4.3-11.0 Blood erythrocytes automated count (number/volume) 2.37 10*6/uL 4.35-5.85 Venous blood hemoglobin measurement (mass/volume) 7.7 g/dL 11.5-16.0 Blood hematocrit (volume fraction) 24 % 35-52 Automated erythrocyte mean corpuscular volume 101 [foz_us] 80-99 Automated erythrocyte mean corpuscular h emoglobin (mass per erythrocyte) 32 pg 25-34 Automated erythrocyte mean corpuscular h emoglobin concentration measurement (mass/volume) 32 g/dL 32-36 Automated erythrocyte distribution width ratio 15. 0 % 10.0- 14.5 Automated blood platelet count (count/volume) 33 1 0*3/uL 130-400 Automated blood platelet mean volume measurement 10.8 [foz_us] 7.4-10.4 Automated blood neutrophils/100 leukocytes 77 % 42-75 Automated blood lymphocytes/100 leukocytes 12 % 12-44 Blood monocytes/100 leukocytes 10 % 0-12 Automated blood eosinophils/100 leukocytes 1 % 0-10 Automated blood basophils/100 leukocytes 0 % 0-10 Blood neutrophils automated count (number/volume) 1.1 10*3 1.8-7.8 Blood lymphocytes automated count (number/volume) 0.2 10*3 1.0-4.0 Blood monocytes automated count (number/volume) 0. 1 10*3 0.0-1.0 Automated eosinophil count 0.0 10*3/uL 0 .0-0.3 Automated blood basophil count (count/volume) 0.0 10*3/uL 0.0-0.1 PT panel in platelet poor plasma by coag ulation assay - 03/14/20 03:24 Prothrombin time (PT) in platelet poor plasma by coagu lation assay 18.6 s 12.2-14.7 INR in platelet poor plasma or blood by coagulation as say 1.5 0.8-1.4 Activated partial thromboplastin time (a PTT) in platelet poor plasma bycoagulation assay - 03/14/20 03:24 Activated partial thromboplastin time (a PTT) in platelet poor plasma bycoagulation assay 45 s 24-35 Blood lactic acid measurement (moles/vol ume) - 03/14/20 03:24 Blood lactic acid measurement (moles/volume) 1.39 mmol/L 0.50-2.00 Comprehensive metabolic panel - 03/14/20 03:24 Serum or plasma sodium measurement (moles/volume) 136 mmol/L 135-145 Serum or plasma potassium measurement (moles/volume) 3.3 mmol/L 3.6-5.0 Serum or plasma chloride measurement (moles/volume) 96 mmol/L 98-107 Carbon dioxide 24 mmol/L 21-32 Serum or plasma anion gap determination (moles/volume) 16 mmol/L 5-14 Serum or plasma urea nitrogen measurement (mass/volume ) 33 mg/dL 7-18 Serum or plasma creatinine measurement (mass/volume) 2.00 mg/dL 0.60-1.30 Serum or plasma urea nitrogen/creatinine mass ratio 17 NRG Serum or plasma creatinine measurement w ith calculation of estimated glomerular filtration rate 26 NRG Serum or plasma glucose measurement (mass/volume) 126 mg/dL 70-105 Serum or plasma calcium measurement (mass/volume) 8.7 mg/dL 8.5-10.1 Serum or plasma total bilirubin measurement (mass/volu me) 1.2 mg/dL 0.1-1.0 Serum or plasma alkaline phosphatase silvina surement (enzymatic activity/volume) 165 U/L 40-136 Serum or plasma aspartate aminotransfera se measurement (enzymatic activity/volume) 33 U/L 5-34 Serum or plasma alanine aminotransferase measurement (enzymatic activity/volume) 29 U/L 0-55 Serum or plasma protein measurement (mass/volume) 6.3 g/dL 6.4-8.2 Serum or plasma albumin measurement (mass/volume) 3.1 g/dL 3.2-4.5 CALCIUM CORRECTED 9.4 mg/dL 8.5-10.1 PROBNP FS - 03/14/20 03:24 [place] [address].0 pg/mL <75.0 CRP FS - 03/14/20 03:24 CRP FS > 42.20 <0.50 Manual absolute plasma cell count - 02/23 12/13 03:24 Blood monocytes/100 leukocytes 7 % NRG Manual blood segmented neutrophils/100 leukocytes 22 % NRG Blood band neutrophils/100 leukocytes 53 % NRG Manual blood lymphocytes/100 leukocytes 14 % NRG Manual eosinophils/100 leukocytes in nose 0 % NRG Manual blood basophils/100 leukocytes 0 % NRG Blood macrocytes detection by light microscopy 2+ NRG Manual blood metamyelocytes/100 leukocytes 2 % NRG Blood platelet adequacy detection by light microscopy DECREASED NRG Manual blood myelocytes/100 leukocytes 2 % NRG Complete urinalysis with reflex to cultu re - 03/14/20 03:25 Urine color determination ORANGE NRG Urine clarity determination CLOUDY NR G Urine pH measurement by test strip 6.5 5-9 Specific gravity of urine by test strip 1.020 1.016-1.022 Urine protein assay by test strip, semi-quantitative 3+ NEGATIVE Urine glucose detection by automated test strip TR RUTH NEGATIVE Erythrocytes detection in urine sediment by light micr oscopy TRACE NEGATIVE Urine ketones detection by automated test strip 1+ NEGATIVE Urine nitrite detection by test strip POSITIVE NEGATIVE Urine total bilirubin detection by test strip 2+ NEGATIVE Urine urobilinogen measurement by automated test strip (mass/volume) >= mg/dL < = 1.0 Urine leukocyte esterase detection by dipstick 1+ NEGATIVE Automated urine sediment erythrocyte cou nt by microscopy (number/high power field) [HPF] NRG Automated urine sediment leukocyte count by microscopy (number/high power field) > [HPF] NRG Bacteria detection in urine sediment by light microsco py LARGE NRG Squamous epithelial cells detection in u rine sediment by light microscopy 2-5 NRG Crystals detection in urine sediment by light microsco py NONE NRG Casts detection in urine sediment by light microscopy NONE NRG Mucus detection in urine sediment by light microscopy NEGATIVE NRG Complete urinalysis with reflex to culture CULTURE PENDING NRG Arterial blood gas measurement - 0 04:10 Blood pCO2 45 mm[Hg] 35-45 Blood pO2 59 mm[Hg] 79-93 Arterial blood bicarbonate measurement (moles/volume) 25 mmol/L 23-27 Arterial blood base excess by calculation -0.3 mmo l/L -2.5-2.5 Arterial blood oxygen saturation measurement 89 % 94-100 * Inhaled oxygen flow rate 6L O2 NRG Arterial blood pH measurement with patient temperature correction 7.36 7.37-7.43 Arterial blood carbon dioxide, total measurement (mole s/volume) 26.8 mmol/L 21.0-31.0 Body site RT RAD NRG Assessment of wrist artery patency prior to arterial p uncture NA NRG Setting of ventilation mode NO NR G Measurement of body temperature NA NRG Encounters ACCT No. Visit Date/Time Discharge Status Pt. Type Provider Facility Loc./Unit Complaint [id number] 03/02/2020 10:27:06 23:59:59 CLS Outpatient HANSAVARSHA CRAVENCAMIUlysses Thrombocytopenia, unspecified [id number] 03/02/2020 10:26:30 23:59:00 DIS Outpatient PLUAVARSHA CRAVENH INF MP3 Malignant neoplasm of overlapping sites of left female breast [id number] 02/03/2020 15:11:22 23:59:59 CLS Outpatient PLUAVARSHA CRAVENC Malignant neoplasm of overlapping sites of left female breast [id number] 02/03/2020 15:11:49 23:59:00 DIS Outpatient PLUAVARSHA CRAVEN [facility] INF MP3 Malignant neoplasm of overlapping sites of left female breast [id number] 01/06/2020 13:11:25 23:59:59 CLS Outpatient PLUAVARSHA CRAVENC Malignant neoplasm of overlapping sites of left female breast [id number] 01/06/2020 13:11:00 23:59:00 DIS Outpatient PLUAVARSHA CRAVENH INF MP3 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 [id number] 12/07/2019 16:35:36 23:59:59 CLS Outpatient MPI XR AY Malignant neoplasm of unspecified site o f unspecified female breast [id number] 12/07/2019 16:35:22 23:59:59 CLS Outpatient MPI XR AY Malignant neoplasm of unspecified site o f unspecified female breast [id number] 12/07/2019 14:18:58 23:59:59 CLS Outpatient PLUARDVARSHABCC Malignant neoplasm of unspecified site o f unspecified female breast [id number] 12/07/2019 14:19:07 23:59:00 DIS Outpatient PLUAVARSHA CRAVENH INF MP3 Malignant neoplasm of overlapping sites of left female breast [id number] 11/23/2019 08:55:34 23:59:59 CLS Outpatient VARSHA GUBCC Secondary malignant neoplasm of unspecif ied lung [id number] 11/23/2019 08:55:47 23:59:00 DIS Outpatient VARSHA GU [facility] INF MP3 Malignant neoplasm of overlapping sites of left female breast [id number] 11/10/2019 14:45:45 23:59:59 CLS Outpatient JACQUELINEUAVARSHA CRAVEN KABCC Malignant neoplasm of overlapping sites of left female breast [id number] 11/10/2019 14:45:54 23:59:00 DIS Outpatient VARSHA GU [facility] INF MP3 Malignant neoplasm of unspecified site o f unspecified female breast [id number] 10/25/2019 19:11:37 16:38:00 DIS Inpatient ALBA YUANH N4S Malignant neoplasm of unspecified site o f unspecified female breast [id number] 10/25/2019 08:12:29 19:10:00 DIS Outpatient VARSHA GU [facility] PET Malignant neoplasm of unspecified site o f unspecified female breast [id number] 10/13/2019 14:14:44 23:59:59 CLS Outpatient VARSHA GUBCC Secondary malignant neoplasm of unspecif ied lung [id number] 10/13/2019 11:47:37 23:59:[address] Secondary malignant neoplasm of unspecified lung [id number] 10/13/2019 11:45:11 23:59:[address] Secondary malignant neoplasm of unspecified lung [id number] 10/13/2019 14:14:54 23:59:00 DIS Outpatient VARSHA GU [facility] INF MP3 Malignant neoplasm of overlapping sites of left female breast [id number] 10/11/2019 15:14:13 23:59:00 DIS Outpatient DAR CHRISTOPHERH INF MP3 Malignant neoplasm of overlapping sites of left female breast [id number] 10/11/2019 13:39:46 15:13:00 DIS Outpatient VARSHA GU ISIDROIvan CV US Malignant neoplasm of unspecified site o f unspecified female breast [id number] 09/15/2019 12:33:16 23:59:59 CLS Outpatient VARSHA GU KABCC Secondary malignant neoplasm of unspecif ied lung [id number] 09/15/2019 12:31:40 23:59:00 DIS Outpatient JACQUELINEUAVARSHA CRAVEN [facility] INF MP3 Malignant neoplasm of overlapping sites of left female breast [id number] 09/07/2019 10:59:58 23:59:59 CLS Outpatient VARSHA GUBCC Secondary malignant neoplasm of unspecif ied lung [id number] 09/07/2019 11:54:27 23:59:00 DIS Outpatient JACQUELINERAINERVARSHA CRAVEN ISIDROH M1N INF Secondary malignant neoplasm of bone [id number] 09/07/2019 10:59:24 11:53:00 DIS Outpatient PLUAVARSHA CRAVEN [facility] INF MP3 Malignant neoplasm of overlapping sites of left female breast [id number] 08/16/2019 10:53:14 23:59:00 DIS Outpatient AIDA COOK [facility] RAD ONC Malignant neoplasm of overlapping sites of left female breast [id number] 08/13/2019 10:47:25 23:59:00 DIS Outpatient VARSHA GU ISIDROH INF MP3 Hypokalemia [id number] 08/13/2019 10:10:22 10:46:00 DIS Outpatient AIDA COOK RAD ONC [id number] 08/12/2019 11:09:00 23:59:00 DIS Outpatient PLUAVARSHA CRAVEN ISIDROH INF MP3 Malignant neoplasm of overlapping sites of left female breast [id number] 08/12/2019 10:26:54 10:59:00 DIS Outpatient AIDA COOK [facility] RAD ONC [id number] 08/11/2019 10:55:32 23:59:00 DIS Outpatient JOEYAIDA OSCAR RAD ONC [id number] 08/10/2019 11:50:54 23:59:59 CLS Outpatient VARSHA GU Secondary malignant neoplasm of unspecif ied lung [id number] 08/10/2019 15:32:10 23:59:00 DIS Outpatient YAIR AIDA OSCAR RAD ONC [id number] 08/10/2019 00:00:00 23:59:00 DIS Outpatient JOYE AIDA MOORE RAD ONC Breast Cancer [id number] 08/10/2019 11:51:20 15:31:00 DIS Outpatient BRITTANIE VARSHA MOORE INF MP3 Malignant neoplasm of overlapping sites of left female breast [id number] 08/10/2019 10:21:40 11:44:00 DIS Outpatient YAIR AIDA OSCAR RAD ONC Secondary malignant neoplasm of bone [id number] 07/06/2019 15:48:34 23:59:00 DIS Outpatient VARSHA GU M1N INF Anemia, unspecified [id number] 07/07/2019 00:00:00 00:00:00 CAN Outpatient CheleAIDA BERNAL OSCAR RAD ONC [id number] 07/06/2019 12:24:24 23:59:[address] Malignant neoplasm of unspecified site of unspecified female breast [id number] 07/06/2019 12:24:12 23:59:[address] Malignant neoplasm of unspecified site of unspecified female breast [id number] 07/06/2019 11:20:03 23:59:59 CLS Outpatient VARSHA GU Acute respiratory failure with hypoxia [id number] 07/06/2019 11:20:56 23:59:00 DIS Outpatient VARSHA GU INF MP3 Malignant neoplasm of overlapping sites of left female breast [id number] 06/24/2019 09:08:30 23:59:00 DIS Outpatient VARSHA GU RAD ONC [id number] 06/08/2019 12:45:28 23:59:59 CLS Outpatient MPI XR AY Malignant neoplasm of unspecified site o f unspecified female breast [id number] 06/08/2019 12:45:14 23:59:59 CLS Outpatient MPI XR AY Malignant neoplasm of unspecified site o f unspecified female breast [id number] 06/08/2019 11:06:31 23:59:59 CLS Outpatient VARSHA GU Malignant neoplasm of unspecified site o f unspecified female breast [id number] 06/08/2019 11:03:36 23:59:00 DIS Outpatient VARSHA GU INF MP3 Malignant neoplasm of overlapping sites of left female breast [id number] 05/11/2019 12:46:51 23:59:59 CLS Outpatient VARSHA GU Chronic respiratory failure with hypoxia [id number] 05/11/2019 12:44:11 23:59:00 DIS Outpatient VARSHA GU INF MP3 Malignant neoplasm of overlapping sites of left female breast [id number] 04/27/2019 16:34:52 18:14:00 DIS Inpatient IRIS JARA [facility] N4S Other pancytopenia [id number] 04/27/2019 14:31:06 23:59:59 CLS Outpatient [facility] 40 0 CL Malignant neoplasm of overlapping sites of left female breast [id number] 04/27/2019 14:30:09 16:33:00 DIS Outpatient VARSHA GU INF MP3 Malignant neoplasm of overlapping sites of left female breast [id number] 04/15/2019 13:33:44 17:35:00 DIS Emergency ARA HAWKINS [facility] EAS ED SOA [id number] 04/13/2019 11:24:18 23:59:59 CLS Outpatient VARSHA GU KABCC Malignant neoplasm of unspecified site o f unspecified female breast [id number] 04/13/2019 11:24:29 23:59:00 DIS Outpatient VARSHA GU INF MP3 Malignant neoplasm of overlapping sites of left female breast [id number] 04/09/2019 14:16:19 23:59:00 DIS Outpatient VARSHA GU CV US Malignant neoplasm of unspecified site o f unspecified female breast [id number] 04/08/2019 13:49:48 23:59:59 CLS Outpatient VARSHA GUC Malignant neoplasm of unspecified site o f unspecified female breast [id number] 04/08/2019 13:49:18 23:59:00 DIS Outpatient VARSHA GU INF MP3 Malignant neoplasm of overlapping sites of left female breast [id number] 03/28/2019 11:59:21 16:20:00 DIS Inpatient PEACE HINSON [facility] NSB Acute respiratory distress [id number] 03/14/2020 07:33:[address] Inpatient ALEKSANDR ZHAO [facility] ICUA NW Pneumonia [id number] 08/16/2019 11:48:02 Document Registration [id number] 08/10/2019 16:15:31 Document Registration [id number] 08/10/2019 11:44:03 Document Registration [id number] 03/25/2019 10:14:28 Document Registration [id number] 03/24/2019 15:26:09 Document Registration [id number] 03/04/2019 16:27:57 Document Registration [id number] 03/01/2019 13:45:29 Document Registration [id number] 02/18/2019 09:33:14 Document Registration [id number] 02/11/2019 00:00:00 Document Registration [id number] 01/28/2019 13:20:48 Document Registration [id number] 12/23/2018 13:12:18 Document Registration [id number] 12/22/2018 16:43:47 Document Registration [id number] 03/14/2020 03:01:00 05:59:00 DIS Emergency LANDON NELSON MD [facility] ER FS SHORT OF BREATHE [id number] 11/08/2019 12:12:00 23:59:59 CLS Outpatient VARSHA GU MD [facility] IHC CMP CBC CA 15.3 [id number] 05/07/2019 15:04:00 23:59:59 CLS Outpatient LANDON NELSON MD [facility] RAD RT LE SWELLING [id number] 05/05/2019 14:52:00 17:44:00 DIS Outpatient LANDON NELSON MD [facility] ER FS LT LEG PAIN/SWELLING [id number] 08/17/2013 13:50:00 013 23:59:59 CLS Outpatient [id number] 05/18/2013 13:48:00 013 23:59:59 CLS Outpatient
== END 2020-03-14 05:59 | disposition short-term general hospital (02) ==
LOC: EDUNIT# 02:58 → ER FS 03:01
DX: A41.9 Sepsis, unspecified organism (principal); R65.21 Severe sepsis with septic shock; N30.01 Acute cystitis with hematuria; J18.8 Other pneumonia, unspecified organism; E80.6 Other disorders of bilirubin metabolism; J96.01 Acute respiratory failure with hypoxia; D61.818 Other pancytopenia; C50.919 Malignant neoplasm of unspecified site of unspecified female breast; C79.51 Secondary malignant neoplasm of bone; C78.00 Secondary malignant neoplasm of unspecified lung; J45.909 Unspecified asthma, uncomplicated; I10 Essential (primary) hypertension; I89.0 Lymphedema, not elsewhere classified; M32.9 Systemic lupus erythematosus, unspecified; F32.9 Major depressive disorder, single episode, unspecified; Z92.3 Personal history of irradiation; Z92.21 Personal history of antineoplastic chemotherapy; Z87.891 Personal history of nicotine dependence
CPT/HCPCS: 36415; 71045; 80053; 81000; 82805; 83605; 83880; 85007; 85027; 85610; 85730; 86141; 87040; 87077; 87088